=== PATIENT | female | born 1945 | race Two or more races ===

== ENCOUNTER 2018-11-05 16:23 | Inpatient (IN) | payer OTHER, MEDICAID ==
[~2018-11-05] VITALS: Ht 165.1 cm; Wt 136.1 kg
[2018-11-05] MEDS ORDERED: ALBUTEROL (0.083%) 2.5MG/3ML NEB HHN STA (17:10)
[2018-11-05] MEDS ORDERED: FUROSEMIDE 20MG/2ML VIAL IVP ONE (17:15)
[2018-11-05 18:13] LABS: BASOPHILS % 0.3 % (0.0-2.0); EOSINOPHILS % 1.2 % (0.0-5.0); HEMATOCRIT. 42.2 % (36.0-48.0); HEMOGLOBIN. 13.4 g/dL (12.0-16.0); LYMPHOCYTES % 9.8 % (20.0-50.0); MEAN CORPUSCULAR HEMOGLOBIN 27.8 pg (28.0-32.0); MEAN CORPUSCULAR VOLUME 87.4 fL (81.0-99.0); MEAN PLATELET VOLUME 9.2 fl (7.4-10.4); MONOCYTES % 7.7 % (2.0-8.0); PLATELET 238 x1000/uL (130-400); RED BLOOD CELL COUNT 4.83 mill/uL (4.2-5.4); RED CELL DISTRIBUTION WIDTH 15.5 % (11.6-14.6)
[2018-11-05 18:19] LABS: CHLORIDE 96 mEq/L (98-107)
[2018-11-05 18:25] LABS: PARTIAL THROMBOPLASTIN TIME 27.5 sec (23.4-31.0); PROTHROMBIN TIME 10.4 sec (9.1-11.1)
[2018-11-05] MEDS ORDERED: POTASSIUM CHLORIDE 20MEQ TABLET SR PO ONE (18:30)
[2018-11-05 19:34] LABS: *AMPHETAMINES SCREEN URINE NEGATIVE (NEGATIVE); *BARBITURATES SCREEN URINE NEGATIVE (NEGATIVE); *BENZODIAZEPINES SCREEN URINE NEGATIVE (NEGATIVE); *COCAINE SCREEN URINE NEGATIVE (NEGATIVE); METHADONE URINE SCREEN NEGATIVE (NEGATIVE); OPIATES URINE SCREEN NEGATIVE (NEGATIVE)
[2018-11-05 19:35] LABS: CANNABINOID URINE SCREEN NEGATIVE (NEGATIVE); PHENCYCLIDINE URINE SCREEN NEGATIVE (NEGATIVE)
[2018-11-05 23:40] VITALS: BP 96/57
[2018-11-06] MEDS ORDERED: ACETAMINOPHEN 325MG TABLET PO PRN (00:45)
[2018-11-06] MEDS ORDERED: IPRATROPIUM/ALBUTEROL 0.5-3(2.5)MG/3ML NEB HHN PRN (00:45)
[2018-11-06] MEDS ORDERED: NABU-88 MT (00:50)
[2018-11-06] MEDS ORDERED: LORA10TA7 MT (00:50)
[2018-11-06] MEDS ORDERED: ATOR40TA70 MT (00:50)
[2018-11-06] MEDS ORDERED: ATEN1TAB42 MT (00:50)
[2018-11-06 00:56] VITALS: BP 96/57
[2018-11-06] MEDS ORDERED: POTASSIUM CHLORIDE 20MEQ TABLET SR PO SCH (01:00)
[2018-11-06 01:20] LABS: CREATINE KINASE 156 IU/L (26-192)
[2018-11-06 01:21] LABS: CREATINE KINASE MB FRACTION 3.9 ng/mL (0.5-3.6)
[2018-11-06] MEDS ORDERED: LEVOFLOXACIN 500MG PREMIX 100 ML IV SCH ×2 (02:00)
[2018-11-06 04:00] VITALS: BP 117/50
[2018-11-06 07:31] LABS: BASOPHILS % 0.3 % (0.0-2.0); EOSINOPHILS % 1.4 % (0.0-5.0); HEMATOCRIT. 41.1 % (36.0-48.0); HEMOGLOBIN. 13.1 g/dL (12.0-16.0); LYMPHOCYTES % 11.6 % (20.0-50.0); MEAN CORPUSCULAR HEMOGLOBIN 28.1 pg (28.0-32.0); MEAN CORPUSCULAR VOLUME 88.2 fL (81.0-99.0); MEAN PLATELET VOLUME 8.9 fl (7.4-10.4); MONOCYTES % 7.8 % (2.0-8.0); NEUTROPHILS % 78.9 % (40.0-76.0); PLATELET 211 x1000/uL (130-400); RED BLOOD CELL COUNT 4.66 mill/uL (4.2-5.4); RED CELL DISTRIBUTION WIDTH 15.5 % (11.6-14.6)
[2018-11-06 07:32] LABS: CHLORIDE 96 mEq/L (98-107)
[2018-11-06 07:49] LABS: LDL CHOLESTEROL 76 mg/dL (5-100)
[2018-11-06 07:51] LABS: CREATINE KINASE 182 IU/L (26-192)
[2018-11-06 07:52] LABS: HDL CHOLESTEROL 43 mg/dL (40-59)
[2018-11-06 08:00] VITALS: BP 115/59
[2018-11-06] MEDS: IPRATROPIUM/ALBUTEROL 0.5-3(2.5)MG/3ML NEB HHN SCH ×4 (08:20→20:34)
[2018-11-06 12:00] VITALS: BP 117/59
[2018-11-06 12:21] LABS: BG BASE EXCESS 11.8 mmol/L (-2.0-2.0); BG CARBOXYHEMOGLOBIN 1.2 % (0.5-1.5); BG DEOXYHEMOGLOBIN 10.7 % (0.0-5.0); BG FRACTION INSPIRED OXYGEN 21; BG HCO3 ACT 39.5 mmol/L (22.0-26.0); BG METHEMOGLOBIN 0.4 % (0.0-1.5); BG OXYGEN SATURATION 89.1 % (92.0-98.5); BG OXYHEMOGLOBIN 87.7 % (94.0-97.0); BG PCO2 64.7 mmHg (35.0-45.0); BG PH 7.404 (7.350-7.450); BG PO2 56.1 mmHg (75.0-100.0); BG SAMPLE SITE RIGHT BRACHIAL; BG TOTAL HEMOGLOBIN 14.5 g/dL (12.0-18.0); BG VENT MODE ROOM AIR
[2018-11-06] MEDS ORDERED: DIPHENHYDRAMINE 50MG/ML VIAL IV PRN (14:30)
[2018-11-06] MEDS ORDERED: DOCUSATE SODIUM 100MG CAPSULE PO PRN (14:30)
[2018-11-06] MEDS ORDERED: ONDANSETRON HCL 4MG/2ML INJ IV PRN (14:30)
[2018-11-06] MEDS ORDERED: HYDROCODONE/ACETAMINOPHEN 5/325MG TABLET PO PRN (14:30)
[2018-11-06] MEDS ORDERED: HYDRALAZINE 20MG/ML VIAL IV PRN (14:30)
[2018-11-06 16:00] VITALS: BP 103/46
[2018-11-06 17:50] LABS: T4 FREE 1.35 ng/dL (0.76-1.46)
[2018-11-06] MEDS ORDERED: POTASSIUM CHLORIDE 20MEQ TABLET SR PO NR (18:30)
[2018-11-06] MEDS: LORATADINE 10MG TABLET PO SCH (19:00)
[2018-11-06] MEDS: METHYLPREDNISOLONE SOD SUCC 40 MG/ML VIAL IV SCH ×2 (19:00→21:47)
[2018-11-06 20:00] VITALS: BP 117/57
[2018-11-06] MEDS: BUDESONIDE 0.5MG/2ML NEB HHN SCH (20:33)
[2018-11-06] MEDS ORDERED: LEVOFLOXACIN 250MG PREMIX 50 ML IV SCH (21:00)
[2018-11-06] MEDS: MONTELUKAST SODIUM 10MG TABLET PO SCH (21:47)
[2018-11-06] MEDS: ATORVASTATIN CALCIUM 40MG TABLET PO SCH (21:47)
[2018-11-06] MEDS: ENOXAPARIN 40MG/0.4ML SYR SUBCUT SCH (21:47)
[2018-11-06] MEDS: FAMOTIDINE 20MG/2ML VIAL IV SCH (21:47)
[2018-11-06] MEDS: FUROSEMIDE 40MG/4ML VIAL IVP SCH (21:48)
[2018-11-06 22:44] LABS: CLARITY URINE CLEAR (CLEAR); COLOR URINE YELLOW (YELLOW); KETONES URINE NEGATIVE (NEGATIVE); LEUKOCYTE ESTERASE URINE NEGATIVE (NEGATIVE); NITRITE URINE NEGATIVE (NEGATIVE); OCCULT BLOOD URINE NEGATIVE (NEGATIVE); PH URINE 6.5 (4.5-8.0); PROTEIN URINE TRACE (NEGATIVE); SPECIFIC GRAVITY URINE 1.021 (1.005-1.030)
[2018-11-07] VITALS (9 sets, daily range): BP systolic 101–157; BP diastolic 44–62
[2018-11-07] MEDS: IPRATROPIUM/ALBUTEROL 0.5-3(2.5)MG/3ML NEB HHN SCH ×6 (00:19→20:57)
[2018-11-07] MEDS: METHYLPREDNISOLONE SOD SUCC 40 MG/ML VIAL IV SCH ×3 (05:33→21:06)
[2018-11-07] MEDS: LEVOFLOXACIN 500MG PREMIX 100 ML IV SCH (05:38)
[2018-11-07 06:29] LABS: HEMATOCRIT 41.9 % (36.0-48.0); HEMOGLOBIN 13.3 g/dL (12.0-16.0); MEAN CORPUSCULAR HEMOGLOBIN 28.2 pg (28.0-32.0); MEAN CORPUSCULAR VOLUME 88.6 fL (81.0-99.0); PLATELET 207 x1000/uL (130-400); RED BLOOD CELL COUNT 4.72 mill/uL (4.2-5.4); RED CELL DISTRIBUTION WIDTH 15.7 % (11.6-14.6)
[2018-11-07 07:55] LABS: CHLORIDE 97 mEq/L (98-107)
[2018-11-07] MEDS: BUDESONIDE 0.5MG/2ML NEB HHN SCH ×2 (09:45→20:50)
[2018-11-07] MEDS: FAMOTIDINE 20MG/2ML VIAL IV SCH ×2 (09:50→20:48)
[2018-11-07] MEDS: LORATADINE 10MG TABLET PO SCH (09:50)
[2018-11-07] MEDS: POTASSIUM CHLORIDE 20MEQ TABLET SR PO SCH (09:50)
[2018-11-07] MEDS: FUROSEMIDE 40MG/4ML VIAL IVP SCH ×2 (09:50→20:48)
[2018-11-07] MEDS: ENOXAPARIN 40MG/0.4ML SYR SUBCUT SCH ×2 (10:28→20:48)
[2018-11-07 18:05] LABS: CREATINE KINASE MB FRACTION 3.4 ng/mL (0.5-3.6)
[2018-11-07] MEDS: ATORVASTATIN CALCIUM 40MG TABLET PO SCH (20:47)
[2018-11-07] MEDS: MONTELUKAST SODIUM 10MG TABLET PO SCH (20:47)
[2018-11-07] MEDS: AMLODIPINE 2.5MG TABLET PO SCH (20:48)
[2018-11-08] VITALS: BP 113/59
[2018-11-08] MEDS: IPRATROPIUM/ALBUTEROL 0.5-3(2.5)MG/3ML NEB HHN SCH ×6 (00:01→21:01)
[2018-11-08 04:00] VITALS: BP 100/48
[2018-11-08] MEDS: METHYLPREDNISOLONE SOD SUCC 40 MG/ML VIAL IV SCH ×3 (05:16→22:03)
[2018-11-08] MEDS: LEVOFLOXACIN 500MG PREMIX 100 ML IV SCH (05:16)
[2018-11-08 06:13] LABS: HEMATOCRIT 40.2 % (36.0-48.0); HEMOGLOBIN 12.9 g/dL (12.0-16.0); MEAN CORPUSCULAR HEMOGLOBIN 28.1 pg (28.0-32.0); MEAN CORPUSCULAR VOLUME 87.9 fL (81.0-99.0); PLATELET 197 x1000/uL (130-400); RED BLOOD CELL COUNT 4.58 mill/uL (4.2-5.4); RED CELL DISTRIBUTION WIDTH 15.4 % (11.6-14.6)
[2018-11-08 06:33] LABS: CHLORIDE 93 mEq/L (98-107)
[2018-11-08 08:00] VITALS: BP 130/63
[2018-11-08] MEDS: BUDESONIDE 0.5MG/2ML NEB HHN SCH ×2 (09:16→21:02)
[2018-11-08] MEDS: FUROSEMIDE 40MG/4ML VIAL IVP SCH ×2 (09:47→20:57)
[2018-11-08] MEDS: LORATADINE 10MG TABLET PO SCH (09:47)
[2018-11-08] MEDS: FAMOTIDINE 20MG/2ML VIAL IV SCH ×2 (09:47→20:55)
[2018-11-08] MEDS: ENOXAPARIN 40MG/0.4ML SYR SUBCUT SCH ×2 (09:48→20:59)
[2018-11-08] MEDS: AMLODIPINE 2.5MG TABLET PO SCH ×2 (09:48→20:55)
[2018-11-08] MEDS: POTASSIUM CHLORIDE 20MEQ TABLET SR PO SCH (09:52)
[2018-11-08 12:00] VITALS: BP 114/67
[2018-11-08 16:00] VITALS: BP 127/62
[2018-11-08 20:00] VITALS: BP 126/62
[2018-11-08] MEDS: ATORVASTATIN CALCIUM 40MG TABLET PO SCH (20:54)
[2018-11-08] MEDS: MONTELUKAST SODIUM 10MG TABLET PO SCH (22:03)
[2018-11-09] VITALS: BP 111/51
[2018-11-09 04:00] VITALS: BP 134/45
[2018-11-09] MEDS: IPRATROPIUM/ALBUTEROL 0.5-3(2.5)MG/3ML NEB HHN SCH ×6 (04:49→21:18)
[2018-11-09] MEDS: LEVOFLOXACIN 500MG PREMIX 100 ML IV SCH (05:38)
[2018-11-09] MEDS: METHYLPREDNISOLONE SOD SUCC 40 MG/ML VIAL IV SCH ×2 (05:38→13:44)
[2018-11-09] MEDS: BUDESONIDE 0.5MG/2ML NEB HHN SCH (07:50)
[2018-11-09 08:00] VITALS: BP 119/65
[2018-11-09] MEDS: FAMOTIDINE 20MG/2ML VIAL IV SCH ×2 (09:04→20:35)
[2018-11-09] MEDS: FUROSEMIDE 40MG/4ML VIAL IVP SCH ×2 (09:04→20:35)
[2018-11-09] MEDS: ENOXAPARIN 40MG/0.4ML SYR SUBCUT SCH ×2 (09:04→20:35)
[2018-11-09] MEDS: POTASSIUM CHLORIDE 20MEQ TABLET SR PO SCH (09:05)
[2018-11-09] MEDS: AMLODIPINE 2.5MG TABLET PO SCH ×2 (09:05→20:34)
[2018-11-09] MEDS: LORATADINE 10MG TABLET PO SCH (09:05)
[2018-11-09 11:39] LABS: BG BASE EXCESS 18.6 mmol/L (-2.0-2.0); BG DEOXYHEMOGLOBIN 2.6 % (0.0-5.0); BG FRACTION INSPIRED OXYGEN 32; BG HCO3 ACT 47.3 mmol/L (22.0-26.0); BG METHEMOGLOBIN 0.2 % (0.0-1.5); BG OXYGEN SATURATION 97.4 % (92.0-98.5); BG OXYHEMOGLOBIN 96.2 % (94.0-97.0); BG PCO2 71.6 mmHg (35.0-45.0); BG PH 7.438 (7.350-7.450); BG PO2 96.9 mmHg (75.0-100.0); BG SAMPLE SITE RIGHT RADIAL; BG TOTAL HEMOGLOBIN 15.2 g/dL (12.0-18.0); BG VENT MODE NASAL CANNULA
[2018-11-09 12:33] VITALS: BP 136/66
[2018-11-09 16:00] VITALS: BP 121/55
[2018-11-09 20:00] VITALS: BP 112/47
[2018-11-09] MEDS: MONTELUKAST SODIUM 10MG TABLET PO SCH (20:34)
[2018-11-09] MEDS: ATORVASTATIN CALCIUM 40MG TABLET PO SCH (20:34)
[2018-11-10] VITALS (7 sets, daily range): BP systolic 105–124; BP diastolic 49–70
[2018-11-10] MEDS: IPRATROPIUM/ALBUTEROL 0.5-3(2.5)MG/3ML NEB HHN SCH ×6 (00:44→20:09)
[2018-11-10] MEDS: METHYLPREDNISOLONE SOD SUCC 40 MG/ML VIAL IV SCH ×2 (03:28→15:15)
[2018-11-10] MEDS: LEVOFLOXACIN 500MG PREMIX 100 ML IV SCH (05:26)
[2018-11-10 07:17] LABS: BG BASE EXCESS 17.1 mmol/L (-2.0-2.0); BG CARBOXYHEMOGLOBIN 1.3 % (0.5-1.5); BG DEOXYHEMOGLOBIN 6.2 % (0.0-5.0); BG HCO3 ACT 47.2 mmol/L (22.0-26.0); BG METHEMOGLOBIN 0.3 % (0.0-1.5); BG OXYGEN SATURATION 93.7 % (92.0-98.5); BG OXYHEMOGLOBIN 92.2 % (94.0-97.0); BG PCO2 80.1 mmHg (35.0-45.0); BG PH 7.388 (7.350-7.450); BG PO2 71.6 mmHg (75.0-100.0); BG SAMPLE SITE RIGHT RADIAL; BG TOTAL HEMOGLOBIN 15.9 g/dL (12.0-18.0); BG VENT MODE NASAL CANNULA
[2018-11-10 07:36] LABS: HEMATOCRIT 44.7 % (36.0-48.0); HEMOGLOBIN 14.1 g/dL (12.0-16.0); MEAN CORPUSCULAR HEMOGLOBIN 27.9 pg (28.0-32.0); MEAN CORPUSCULAR VOLUME 88.5 fL (81.0-99.0); PLATELET 190 x1000/uL (130-400); RED BLOOD CELL COUNT 5.05 mill/uL (4.2-5.4); RED CELL DISTRIBUTION WIDTH 15.6 % (11.6-14.6)
[2018-11-10] MEDS: LORATADINE 10MG TABLET PO SCH (09:59)
[2018-11-10] MEDS: POTASSIUM CHLORIDE 20MEQ TABLET SR PO SCH (09:59)
[2018-11-10] MEDS: FUROSEMIDE 40MG/4ML VIAL IVP SCH (09:59)
[2018-11-10] MEDS: AMLODIPINE 2.5MG TABLET PO SCH ×2 (09:59→21:00)
[2018-11-10] MEDS: FAMOTIDINE 20MG/2ML VIAL IV SCH ×2 (09:59→21:21)
[2018-11-10] MEDS: ENOXAPARIN 40MG/0.4ML SYR SUBCUT SCH ×2 (10:00→21:21)
[2018-11-10] MEDS ORDERED: LIDOCAINE HCL/PF 1% 2ML VIAL ONE (13:16)
[2018-11-10 17:54] LABS: BG BASE EXCESS 18.4 mmol/L (-2.0-2.0); BG CARBOXYHEMOGLOBIN 1.1 % (0.5-1.5); BG DEOXYHEMOGLOBIN 5.8 % (0.0-5.0); BG HCO3 ACT 46.3 mmol/L (22.0-26.0); BG METHEMOGLOBIN 0.2 % (0.0-1.5); BG OXYGEN SATURATION 94.1 % (92.0-98.5); BG OXYHEMOGLOBIN 92.9 % (94.0-97.0); BG PCO2 64.9 mmHg (35.0-45.0); BG PH 7.471 (7.350-7.450); BG PO2 67.4 mmHg (75.0-100.0); BG SAMPLE SITE RIGHT BRACHIAL; BG TOTAL HEMOGLOBIN 15.8 g/dL (12.0-18.0); BG VENT MODE NASAL CANNULA
[2018-11-10] MEDS: ATORVASTATIN CALCIUM 40MG TABLET PO SCH (21:21)
[2018-11-10] MEDS: MONTELUKAST SODIUM 10MG TABLET PO SCH (21:21)
[2018-11-11] MEDS ORDERED: FUROSEMIDE 40MG TABLET PO SCH (09:00)
== END 2018-11-10 21:40 | disposition home or self-care (01) | DRG 189 ==
LOC: ER 16:23 → 5WST 18:37 → EDBEDREQ 18:51 → ENRESERV 22:04
PROVIDERS: ADMIT Internal Medicine; ATTEND Internal Medicine
PROC: 5A09357 Assistance with Respiratory Ventilation, Less than 24 Consecutive Hours, Continuous Positive Airway Pressure (ICD-10-PCS; principal; 2018-11-06)
PROC: 5A09357 Assistance with Respiratory Ventilation, Less than 24 Consecutive Hours, Continuous Positive Airway Pressure (ICD-10-PCS; 2018-11-07)
PROC: 5A09357 Assistance with Respiratory Ventilation, Less than 24 Consecutive Hours, Continuous Positive Airway Pressure (ICD-10-PCS; 2018-11-08)
PROC: 5A09357 Assistance with Respiratory Ventilation, Less than 24 Consecutive Hours, Continuous Positive Airway Pressure (ICD-10-PCS; 2018-11-09)
PROC: 5A09357 Assistance with Respiratory Ventilation, Less than 24 Consecutive Hours, Continuous Positive Airway Pressure (ICD-10-PCS; 2018-11-10)
DX: J96.01 Acute respiratory failure with hypoxia (principal); I50.33 Acute on chronic diastolic (congestive) heart failure; J44.1 Chronic obstructive pulmonary disease with (acute) exacerbation; D68.59 Other primary thrombophilia; E66.2 Morbid (severe) obesity with alveolar hypoventilation; Z68.42 Body mass index [BMI] 45.0-49.9, adult; J96.02 Acute respiratory failure with hypercapnia; D72.829 Elevated white blood cell count, unspecified; E87.6 Hypokalemia; E78.5 Hyperlipidemia, unspecified; R73.9 Hyperglycemia, unspecified; I27.20 Pulmonary hypertension, unspecified; I73.9 Peripheral vascular disease, unspecified; Z87.891 Personal history of nicotine dependence; Z88.0 Allergy status to penicillin; Z88.6 Allergy status to analgesic agent; Z88.1 Allergy status to other antibiotic agents; I11.0 Hypertensive heart disease with heart failure
CPT/HCPCS: 36415; 36600; 71045; 71250; 80048; 80061; 80305; 82375; 82550; 82553; 82805; 83036; 83880; 84439; 84443; 84484; 85027; 85379; 87804; 93005; 93306; 93923; 93970; 94640; 94660; 94760; 96374; 97162; 97535; 99285; C1893; J1650; J1940; J1956; J2920; J3490; J7040; J7611; J7620; J7626

== ENCOUNTER 2020-05-10 17:13 | Inpatient (IN) | payer OTHER, MEDICAID ==
[~2020-05-10] VITALS: Ht 162.6 cm; Wt 125.2 kg
[~2020-05-10 17:13] MED LIST: AMLO5TAB4 MT; ATOR40TA70 MT; FAMO-135 PO; FLUT1AER INH; FURO-151 MT; IPRA3AMP9 HHN; LEVO500T2 PO; LORA10TA7 MT; P20 MT
[2020-05-10] MEDS ORDERED: FUROSEMIDE 40MG/4ML VIAL IV ONE (18:15)
[2020-05-10] MEDS ORDERED: LEVOFLOXACIN 750MG PREMIX 150 ML IV ONE (18:15)
[2020-05-10] MEDS ORDERED: VANCOMYCIN 1 G PREMIX 200 ML IV ONE (18:15)
[2020-05-10] MEDS ORDERED: NITROGLYCERIN OINT 1GM/INCH UDPKT TD ONE (18:15)
[2020-05-10] MEDS ORDERED: MORPHINE SULFATE 4 MG/ML CPJ (NOT FOR IM USE) IV STA (18:51)
[2020-05-10] MEDS ORDERED: ONDANSETRON HCL 4MG/2ML INJ IV STA (18:51)
[2020-05-10 19:12] LABS: HEMATOCRIT. 35.9 % (36.0-48.0); HEMOGLOBIN. 11.2 g/dL (12.0-16.0); MEAN CORPUSCULAR HEMOGLOBIN 27.4 pg (28.0-32.0); MEAN CORPUSCULAR VOLUME 87.7 fL (81.0-99.0); MEAN PLATELET VOLUME 10.2 fl (7.4-10.4); PLATELET 241 x1000/uL (130-400); RED CELL DISTRIBUTION WIDTH 16.2 % (11.6-14.6)
[2020-05-10 19:20] LABS: CHLORIDE 97 mEq/L (98-107)
[2020-05-10 19:35] LABS: INR 1.1; PARTIAL THROMBOPLASTIN TIME 30.8 sec (23.4-31.0); PROTHROMBIN TIME 11.4 sec (9.6-11.0)
[2020-05-10 20:07] LABS: PLATELET ESTIMATE NORMAL
[2020-05-10] MEDS ORDERED: PROPOFOL 10MG/ML 100ML 100 ML IV ONE ×2 (20:32→21:00)
[2020-05-10] MEDS ORDERED: LORAZEPAM 2MG/ML CPJ ONE (20:44)
[2020-05-10] MEDS ORDERED: LORAZEPAM 2MG/ML CPJ IV ONE (21:00)
[2020-05-10] MEDS ORDERED: NOREPINEPHRINE 8 MG in DEXT 5% WATER 242 ML IV STA (21:26)
[2020-05-10 21:27] LABS: BG BASE EXCESS 4.3 mmol/L (-2.0-2.0); BG CARBOXYHEMOGLOBIN 1.6 % (0.5-1.5); BG DEOXYHEMOGLOBIN 1.7 % (0.0-5.0); BG FRACTION INSPIRED OXYGEN 100; BG HCO3 ACT 33.1 mmol/L (22.0-26.0); BG METHEMOGLOBIN 0.1 % (0.0-1.5); BG OXYGEN SATURATION 98.3 % (92.0-98.5); BG OXYHEMOGLOBIN 96.6 % (94.0-97.0); BG PCO2 73.4 mmHg (35.0-45.0); BG PH 7.272 (7.350-7.450); BG PO2 171.1 mmHg (75.0-100.0); BG SAMPLE SITE RIGHT RADIAL; BG TIDAL VOLUME(mL) 550 mL; BG TOTAL HEMOGLOBIN 11.8 g/dL (12.0-18.0); BG VENT MODE VENT - A/C; BG VENT RATE 16 set
[2020-05-10] MEDS ORDERED: NOREPINEPHRINE 8MG/250ML PMX 250 ML IV PRN (21:30)
[2020-05-11] VITALS (20 sets, daily range): BP systolic 78–151; BP diastolic 39–69
[2020-05-11] MEDS ORDERED: PROPOFOL 10MG/ML 100ML 100 ML IV SCH (01:30)
[2020-05-11] MEDS ORDERED: NOREPINEPHRINE 8MG/250ML PMX 250 ML IV ONE ×3 (03:00→17:30)
[2020-05-11] MEDS ORDERED: LEVOFLOXACIN 500MG PREMIX 100 ML IV SCH (12:45)
[2020-05-11] MEDS ORDERED: ONDANSETRON HCL 4MG/2ML INJ IV PRN (12:45)
[2020-05-11] MEDS: PANTOPRAZOLE SODIUM 40 MG/VIAL IV SCH (13:39)
[2020-05-11] MEDS ORDERED: LORAZEPAM 2MG/ML CPJ IV PRN (16:30)
[2020-05-11 16:47] LABS: CLARITY URINE CLOUDY (CLEAR); COLOR URINE YELLOW (YELLOW); KETONES URINE 1+ (NEGATIVE); LEUKOCYTE ESTERASE URINE TRACE (NEGATIVE); NITRITE URINE NEGATIVE (NEGATIVE); OCCULT BLOOD URINE 1+ (NEGATIVE); PROTEIN URINE TRACE (NEGATIVE); SPECIFIC GRAVITY URINE 1.016 (1.005-1.030)
[2020-05-11] MEDS: ACETAMINOPHEN 325MG TABLET PO PRN (17:39)
[2020-05-11] MEDS: FUROSEMIDE 40MG/4ML VIAL IV SCH (17:45)
[2020-05-11] MEDS: PROPOFOL 10MG/ML 100ML 100 ML IV PRN ×2 (19:16→22:14)
[2020-05-11] MEDS ORDERED: NOREPINEPHRINE 32 MG in DEXT 5% WATER 218 ML IV PRN (19:30)
[2020-05-11] MEDS: LEVOFLOXACIN 250MG PREMIX 50 ML IV SCH (20:06)
[2020-05-11] MEDS: IPRATROPIUM/ALBUTEROL 0.5-3(2.5)MG/3ML NEB HHN SCH (20:59)
[2020-05-12] VITALS (96 sets, daily range): BP systolic 86–139; BP diastolic 36–96
[2020-05-12] MEDS: IPRATROPIUM/ALBUTEROL 0.5-3(2.5)MG/3ML NEB HHN SCH ×5 (00:18→21:45)
[2020-05-12] MEDS: PROPOFOL 10MG/ML 100ML 100 ML IV PRN ×6 (01:36→17:38)
[2020-05-12] MEDS: FUROSEMIDE 40MG/4ML VIAL IV SCH ×2 (06:22→17:39)
[2020-05-12 06:27] LABS: HEMATOCRIT. 30.7 % (36.0-48.0); HEMOGLOBIN. 9.7 g/dL (12.0-16.0); MEAN CORPUSCULAR HEMOGLOBIN 27.3 pg (28.0-32.0); MEAN CORPUSCULAR VOLUME 86.2 fL (81.0-99.0); MEAN PLATELET VOLUME 9.9 fl (7.4-10.4); PLATELET 203 x1000/uL (130-400); RED BLOOD CELL COUNT 3.56 mill/uL (4.2-5.4); RED CELL DISTRIBUTION WIDTH 16.2 % (11.6-14.6)
[2020-05-12] MEDS: PANTOPRAZOLE SODIUM 40 MG/VIAL IV SCH (08:28)
[2020-05-12] MEDS: ACETAMINOPHEN 325MG TABLET PO PRN (08:36)
[2020-05-12 09:27] LABS: BG BASE EXCESS 10.3 mmol/L (-2.0-2.0); BG CARBOXYHEMOGLOBIN 0.8 % (0.5-1.5); BG DEOXYHEMOGLOBIN 7.5 % (0.0-5.0); BG FRACTION INSPIRED OXYGEN 70; BG HCO3 ACT 34.2 mmol/L (22.0-26.0); BG METHEMOGLOBIN 0.3 % (0.0-1.5); BG OXYGEN SATURATION 92.4 % (92.0-98.5); BG OXYHEMOGLOBIN 91.4 % (94.0-97.0); BG PCO2 43.1 mmHg (35.0-45.0); BG PH 7.518 (7.350-7.450); BG PO2 63.7 mmHg (75.0-100.0); BG SAMPLE SITE RIGHT RADIAL; BG TIDAL VOLUME(mL) 550 mL; BG TOTAL HEMOGLOBIN 10.8 g/dL (12.0-18.0); BG VENT MODE VENT - A/C; BG VENT RATE 20 set
[2020-05-12 09:52] LABS: CHLORIDE 101 mEq/L (98-107)
[2020-05-12 09:59] LABS: PHOSPHORUS 3.1 mg/dL (2.5-4.9)
[2020-05-12] MEDS ORDERED: ENOXAPARIN 40MG/0.4ML SYR SUBCUT SCH (11:00)
[2020-05-12] MEDS: TRAMADOL 50MG TABLET PO PRN ×2 (12:29→23:47)
[2020-05-12] MEDS: POTASSIUM CHLORIDE 20MEQ TABLET SR PO SCH (12:31)
[2020-05-12 12:41] LABS: PLATELET ESTIMATE NORMAL
[2020-05-12] MEDS: LEVOFLOXACIN 250MG PREMIX 50 ML IV SCH (17:33)
[2020-05-12] MEDS: PROPOFOL 10MG/ML 100ML 100 ML IV SCH ×2 (20:11→22:40)
[2020-05-12] MEDS: ENOXAPARIN 30MG/0.3ML SYR SUBCUT SCH (21:26)
[2020-05-13] VITALS (96 sets, daily range): BP systolic 80–130; BP diastolic 24–73
[2020-05-13] MEDS ORDERED: VANCOMYCIN 750 MG PREMIX 150 ML IV SCH
[2020-05-13] MEDS: PROPOFOL 10MG/ML 100ML 100 ML IV SCH ×6 (01:41→18:29)
[2020-05-13] MEDS: MEROPENEM 500 MG in SODIUM CHLORIDE 0.9% 50 ML IV SCH ×3 (02:07→17:41)
[2020-05-13] MEDS: IPRATROPIUM/ALBUTEROL 0.5-3(2.5)MG/3ML NEB HHN SCH ×4 (03:34→19:58)
[2020-05-13 06:13] LABS: HEMATOCRIT. 28.6 % (36.0-48.0); HEMOGLOBIN. 9.1 g/dL (12.0-16.0); MEAN CORPUSCULAR HEMOGLOBIN 27.6 pg (28.0-32.0); MEAN CORPUSCULAR VOLUME 86.6 fL (81.0-99.0); MEAN PLATELET VOLUME 9.9 fl (7.4-10.4); PLATELET 182 x1000/uL (130-400); RED CELL DISTRIBUTION WIDTH 15.9 % (11.6-14.6)
[2020-05-13] MEDS: FUROSEMIDE 40MG/4ML VIAL IV SCH ×2 (06:25→17:44)
[2020-05-13] MEDS: TRAMADOL 50MG TABLET PO PRN (08:53)
[2020-05-13] MEDS: POTASSIUM CHLORIDE 20MEQ TABLET SR PO SCH (08:53)
[2020-05-13] MEDS: PANTOPRAZOLE SODIUM 40 MG/VIAL IV SCH (08:53)
[2020-05-13] MEDS: ENOXAPARIN 30MG/0.3ML SYR SUBCUT SCH ×2 (08:55→20:33)
[2020-05-13 10:23] LABS: PLATELET ESTIMATE NORMAL
[2020-05-13 12:11] LABS: BG BASE EXCESS 10.5 mmol/L (-2.0-2.0); BG CARBOXYHEMOGLOBIN 0.6 % (0.5-1.5); BG DEOXYHEMOGLOBIN 5.3 % (0.0-5.0); BG FRACTION INSPIRED OXYGEN 70; BG HCO3 ACT 35.2 mmol/L (22.0-26.0); BG METHEMOGLOBIN 0.3 % (0.0-1.5); BG OXYGEN SATURATION 94.7 % (92.0-98.5); BG OXYHEMOGLOBIN 93.8 % (94.0-97.0); BG PCO2 48.5 mmHg (35.0-45.0); BG PH 7.479 (7.350-7.450); BG PO2 80.5 mmHg (75.0-100.0); BG SAMPLE SITE RIGHT RADIAL; BG TIDAL VOLUME(mL) 550 mL; BG TOTAL HEMOGLOBIN 9.5 g/dL (12.0-18.0); BG VENT MODE VENT - A/C; BG VENT RATE 20 set
[2020-05-13] MEDS ORDERED: POTASSIUM CHLORIDE INJ 40 MEQ in DEXT 5% WATER 250 ML IV SCH (13:00)
[2020-05-13] MEDS ORDERED: DIPHENHYDRAMINE 50MG/ML VIAL IV PRN (14:15)
[2020-05-13] MEDS ORDERED: MORPHINE SULFATE 2 MG/ML CPJ (NOT FOR IM USE) IV PRN (14:15)
[2020-05-13] MEDS ORDERED: ALBUMIN HUMAN 25GM/100ML (25%) IV NR (14:30)
[2020-05-13] MEDS: METHYLPREDNISOLONE SOD SUCC 40 MG/ML VIAL IV SCH ×2 (14:42→20:33)
[2020-05-13] MEDS: VANCOMYCIN 1500MG in DEXTROSE 5% WATER 250ML IV SCH (18:29)
[2020-05-13] MEDS: PROPOFOL 10MG/ML 100ML 100 ML IV PRN ×2 (20:14→22:59)
[2020-05-13] MEDS ORDERED: LACTULOSE 20G/30ML UDC PO PRN (21:00)
[2020-05-14] VITALS (94 sets, daily range): BP systolic 91–120; BP diastolic 40–65
[2020-05-14] MEDS: MEROPENEM 500 MG in SODIUM CHLORIDE 0.9% 50 ML IV SCH ×3 (01:14→18:26)
[2020-05-14] MEDS: PROPOFOL 10MG/ML 100ML 100 ML IV PRN ×10 (01:15→23:44)
[2020-05-14] MEDS: IPRATROPIUM/ALBUTEROL 0.5-3(2.5)MG/3ML NEB HHN SCH ×3 (02:11→12:14)
[2020-05-14 06:11] LABS: HEMATOCRIT. 27.2 % (36.0-48.0); MEAN CORPUSCULAR HEMOGLOBIN 28.6 pg (28.0-32.0); MEAN CORPUSCULAR VOLUME 86.3 fL (81.0-99.0); MEAN PLATELET VOLUME 9.9 fl (7.4-10.4); PLATELET 173 x1000/uL (130-400); RED BLOOD CELL COUNT 3.15 mill/uL (4.2-5.4); RED CELL DISTRIBUTION WIDTH 15.8 % (11.6-14.6)
[2020-05-14 06:31] LABS: T4 FREE 1.69 ng/dL (0.76-1.46)
[2020-05-14] MEDS: FUROSEMIDE 40MG/4ML VIAL IV SCH ×2 (08:16→18:26)
[2020-05-14] MEDS: METHYLPREDNISOLONE SOD SUCC 40 MG/ML VIAL IV SCH ×2 (08:38→21:27)
[2020-05-14] MEDS: PANTOPRAZOLE SODIUM 40 MG/VIAL IV SCH (08:38)
[2020-05-14] MEDS: ENOXAPARIN 30MG/0.3ML SYR SUBCUT SCH ×2 (08:38→21:27)
[2020-05-14] MEDS: POTASSIUM CHLORIDE 20MEQ TABLET SR PO SCH (08:38)
[2020-05-14 08:53] LABS: BG CARBOXYHEMOGLOBIN 0.6 % (0.5-1.5); BG DEOXYHEMOGLOBIN 7.3 % (0.0-5.0); BG FRACTION INSPIRED OXYGEN 70; BG HCO3 ACT 34.2 mmol/L (22.0-26.0); BG METHEMOGLOBIN 0.3 % (0.0-1.5); BG OXYGEN SATURATION 92.6 % (92.0-98.5); BG OXYHEMOGLOBIN 91.8 % (94.0-97.0); BG PCO2 44.9 mmHg (35.0-45.0); BG PO2 67.1 mmHg (75.0-100.0); BG SAMPLE SITE RIGHT RADIAL; BG TIDAL VOLUME(mL) 550 mL; BG TOTAL HEMOGLOBIN 9.2 g/dL (12.0-18.0); BG VENT MODE VENT - A/C; BG VENT RATE 20 set
[2020-05-14 09:15] LABS: PLATELET ESTIMATE NORMAL
[2020-05-14] MEDS ORDERED: POTASSIUM CHLORIDE 20MEQ TABLET SR PO NR (17:00)
[2020-05-14] MEDS: VANCOMYCIN 1500MG in DEXTROSE 5% WATER 250ML IV SCH (18:27)
[2020-05-14] MEDS ORDERED: FUROSEMIDE 40MG/4ML VIAL IVP NR (21:00)
[2020-05-15] VITALS (97 sets, daily range): BP systolic 94–151; BP diastolic 36–97
[2020-05-15] MEDS: IPRATROPIUM/ALBUTEROL 0.5-3(2.5)MG/3ML NEB HHN SCH ×4 (01:45→21:13)
[2020-05-15] MEDS: PROPOFOL 10MG/ML 100ML 100 ML IV PRN ×5 (01:53→20:04)
[2020-05-15] MEDS: MEROPENEM 500 MG in SODIUM CHLORIDE 0.9% 50 ML IV SCH ×3 (01:53→17:35)
[2020-05-15 06:48] LABS: HEMATOCRIT. 28.5 % (36.0-48.0); MEAN CORPUSCULAR HEMOGLOBIN 27.6 pg (28.0-32.0); MEAN CORPUSCULAR VOLUME 86.9 fL (81.0-99.0); MEAN PLATELET VOLUME 10.2 fl (7.4-10.4); PLATELET 215 x1000/uL (130-400); RED BLOOD CELL COUNT 3.27 mill/uL (4.2-5.4); RED CELL DISTRIBUTION WIDTH 15.7 % (11.6-14.6)
[2020-05-15 07:53] LABS: PLATELET ESTIMATE NORMAL
[2020-05-15] MEDS: FUROSEMIDE 40MG/4ML VIAL IV SCH ×2 (07:57→17:09)
[2020-05-15] MEDS: ENOXAPARIN 30MG/0.3ML SYR SUBCUT SCH ×2 (08:21→21:17)
[2020-05-15] MEDS: METHYLPREDNISOLONE SOD SUCC 40 MG/ML VIAL IV SCH ×2 (08:21→21:16)
[2020-05-15] MEDS: PANTOPRAZOLE SODIUM 40 MG/VIAL IV SCH (08:22)
[2020-05-15] MEDS: POTASSIUM CHLORIDE 20MEQ TABLET SR PO SCH (08:22)
[2020-05-15 08:40] LABS: BG BASE EXCESS 8.3 mmol/L (-2.0-2.0); BG CARBOXYHEMOGLOBIN 0.7 % (0.5-1.5); BG DEOXYHEMOGLOBIN 3.4 % (0.0-5.0); BG FRACTION INSPIRED OXYGEN 70; BG METHEMOGLOBIN 0.3 % (0.0-1.5); BG OXYGEN SATURATION 96.6 % (92.0-98.5); BG OXYHEMOGLOBIN 95.6 % (94.0-97.0); BG PCO2 53.2 mmHg (35.0-45.0); BG PH 7.423 (7.350-7.450); BG PO2 95.6 mmHg (75.0-100.0); BG SAMPLE SITE RIGHT RADIAL; BG TIDAL VOLUME(mL) 500 mL; BG TOTAL HEMOGLOBIN 9.8 g/dL (12.0-18.0); BG VENT MODE VENT - A/C; BG VENT RATE 18 set
[2020-05-15] MEDS ORDERED: LIDOCAINE HCL 1% 20ML VIAL (Pyxis) INJ ONE (09:33)
[2020-05-15] MEDS: LORAZEPAM 2MG/ML CPJ IV PRN ×3 (10:04→21:46)
[2020-05-15] MEDS ORDERED: VANCOMYCIN 1500MG in DEXTROSE 5% WATER 250ML IV SCH (12:00)
[2020-05-15 13:46] LABS: BG CARBOXYHEMOGLOBIN 0.9 % (0.5-1.5); BG DEOXYHEMOGLOBIN 10.8 % (0.0-5.0); BG FRACTION INSPIRED OXYGEN 50; BG HCO3 ACT 36.2 mmol/L (22.0-26.0); BG METHEMOGLOBIN 0.3 % (0.0-1.5); BG OXYGEN SATURATION 89.1 % (92.0-98.5); BG PCO2 71.8 mmHg (35.0-45.0); BG PO2 67.7 mmHg (75.0-100.0); BG PRESSURE SUPPORT 10; BG SAMPLE SITE RIGHT RADIAL; BG TOTAL HEMOGLOBIN 11.3 g/dL (12.0-18.0); BG VENT MODE VENT - CPAP
[2020-05-15] MEDS ORDERED: CEFTRIAXONE 1 G PREMIX 50 ML IV SCH (17:15)
[2020-05-16] VITALS (90 sets, daily range): BP systolic 102–141; BP diastolic 42–78
[2020-05-16] MEDS: MEROPENEM 500 MG in SODIUM CHLORIDE 0.9% 50 ML IV SCH ×3 (01:22→17:47)
[2020-05-16] MEDS: IPRATROPIUM/ALBUTEROL 0.5-3(2.5)MG/3ML NEB HHN SCH ×3 (02:15→20:28)
[2020-05-16] MEDS: PROPOFOL 10MG/ML 100ML 100 ML IV PRN ×3 (02:32→16:06)
[2020-05-16 05:46] LABS: HEMATOCRIT. 29.9 % (36.0-48.0); HEMOGLOBIN. 9.7 g/dL (12.0-16.0); MEAN CORPUSCULAR HEMOGLOBIN 28.3 pg (28.0-32.0); MEAN CORPUSCULAR VOLUME 87.3 fL (81.0-99.0); MEAN PLATELET VOLUME 10.1 fl (7.4-10.4); PLATELET 228 x1000/uL (130-400); RED BLOOD CELL COUNT 3.43 mill/uL (4.2-5.4); RED CELL DISTRIBUTION WIDTH 15.9 % (11.6-14.6)
[2020-05-16] MEDS: FUROSEMIDE 40MG/4ML VIAL IV SCH ×2 (06:18→17:47)
[2020-05-16 07:59] LABS: PLATELET ESTIMATE NORMAL
[2020-05-16] MEDS: POTASSIUM CHLORIDE 20MEQ TABLET SR PO SCH (08:24)
[2020-05-16] MEDS: PANTOPRAZOLE SODIUM 40 MG/VIAL IV SCH (08:24)
[2020-05-16] MEDS: METHYLPREDNISOLONE SOD SUCC 40 MG/ML VIAL IV SCH ×2 (08:24→21:00)
[2020-05-16] MEDS: ENOXAPARIN 30MG/0.3ML SYR SUBCUT SCH (08:24)
[2020-05-16 09:26] LABS: BG BASE EXCESS 10.9 mmol/L (-2.0-2.0); BG CARBOXYHEMOGLOBIN 0.6 % (0.5-1.5); BG DEOXYHEMOGLOBIN 3.4 % (0.0-5.0); BG FRACTION INSPIRED OXYGEN 50; BG HCO3 ACT 36.7 mmol/L (22.0-26.0); BG METHEMOGLOBIN 0.3 % (0.0-1.5); BG OXYGEN SATURATION 96.6 % (92.0-98.5); BG OXYHEMOGLOBIN 95.7 % (94.0-97.0); BG PH 7.434 (7.350-7.450); BG PO2 97.6 mmHg (75.0-100.0); BG SAMPLE SITE RIGHT RADIAL; BG TIDAL VOLUME(mL) 500 mL; BG TOTAL HEMOGLOBIN 9.9 g/dL (12.0-18.0); BG VENT MODE VENT - A/C; BG VENT RATE 18 set
[2020-05-16 14:26] LABS: BG BASE EXCESS 9.3 mmol/L (-2.0-2.0); BG CARBOXYHEMOGLOBIN 0.8 % (0.5-1.5); BG DEOXYHEMOGLOBIN 13.5 % (0.0-5.0); BG FRACTION INSPIRED OXYGEN 45; BG HCO3 ACT 36.5 mmol/L (22.0-26.0); BG METHEMOGLOBIN 0.3 % (0.0-1.5); BG OXYGEN SATURATION 86.3 % (92.0-98.5); BG OXYHEMOGLOBIN 85.4 % (94.0-97.0); BG PCO2 65.3 mmHg (35.0-45.0); BG PH 7.365 (7.350-7.450); BG PO2 57.2 mmHg (75.0-100.0); BG PRESSURE SUPPORT 10; BG SAMPLE SITE RIGHT RADIAL; BG TOTAL HEMOGLOBIN 10.5 g/dL (12.0-18.0); BG VENT MODE VENT - CPAP
[2020-05-16 18:03] LABS: BG BASE EXCESS 9.5 mmol/L (-2.0-2.0); BG DEOXYHEMOGLOBIN 5.7 % (0.0-5.0); BG FRACTION INSPIRED OXYGEN 45; BG HCO3 ACT 36.2 mmol/L (22.0-26.0); BG METHEMOGLOBIN 0.3 % (0.0-1.5); BG OXYGEN SATURATION 94.2 % (92.0-98.5); BG PCO2 60.7 mmHg (35.0-45.0); BG PH 7.393 (7.350-7.450); BG PO2 78.9 mmHg (75.0-100.0); BG PRESSURE SUPPORT 10; BG SAMPLE SITE RIGHT RADIAL; BG TOTAL HEMOGLOBIN 10.9 g/dL (12.0-18.0); BG VENT MODE VENT - CPAP
[2020-05-16] MEDS: ENOXAPARIN 40MG/0.4ML SYR SUBCUT SCH (21:00)
[2020-05-17] VITALS (84 sets, daily range): BP systolic 56–130; BP diastolic 36–90
[2020-05-17] MEDS: IPRATROPIUM/ALBUTEROL 0.5-3(2.5)MG/3ML NEB HHN SCH ×5 (00:23→20:45)
[2020-05-17] MEDS: MEROPENEM 500 MG in SODIUM CHLORIDE 0.9% 50 ML IV SCH ×3 (02:54→17:09)
[2020-05-17] MEDS: PROPOFOL 10MG/ML 100ML 100 ML IV PRN ×5 (03:45→23:58)
[2020-05-17] MEDS: LORAZEPAM 2MG/ML CPJ IV PRN (04:39)
[2020-05-17 06:10] LABS: BASOPHILS % 0.1 % (0.0-2.0); EOSINOPHILS % 0.2 % (0.0-5.0); HEMATOCRIT. 30.6 % (36.0-48.0); HEMOGLOBIN. 9.8 g/dL (12.0-16.0); LYMPHOCYTES % 9.6 % (20.0-50.0); MEAN CORPUSCULAR VOLUME 87.8 fL (81.0-99.0); MONOCYTES % 10.1 % (2.0-8.0); PLATELET 208 x1000/uL (130-400); RED BLOOD CELL COUNT 3.49 mill/uL (4.2-5.4); RED CELL DISTRIBUTION WIDTH 15.5 % (11.6-14.6)
[2020-05-17 06:14] LABS: CHLORIDE 108 mEq/L (98-107)
[2020-05-17] MEDS: FUROSEMIDE 40MG/4ML VIAL IV SCH ×2 (07:21→17:09)
[2020-05-17 09:57] LABS: BG BASE EXCESS 13.2 mmol/L (-2.0-2.0); BG CARBOXYHEMOGLOBIN 1.4 % (0.5-1.5); BG CPAP (cmH2O) 0 cm(H2O); BG DEOXYHEMOGLOBIN 9.6 % (0.0-5.0); BG HCO3 ACT 41.1 mmol/L (22.0-26.0); BG METHEMOGLOBIN 0.3 % (0.0-1.5); BG OXYGEN SATURATION 90.2 % (92.0-98.5); BG OXYHEMOGLOBIN 88.7 % (94.0-97.0); BG PCO2 70.3 mmHg (35.0-45.0); BG PH 7.385 (7.350-7.450); BG PO2 64.2 mmHg (75.0-100.0); BG SAMPLE SITE RIGHT RADIAL; BG TOTAL HEMOGLOBIN 12.1 g/dL (12.0-18.0); BG VENT MODE VENT - CPAP
[2020-05-17] MEDS: POTASSIUM CHLORIDE 20MEQ TABLET SR PO SCH (11:28)
[2020-05-17] MEDS: ENOXAPARIN 40MG/0.4ML SYR SUBCUT SCH ×2 (11:28→21:24)
[2020-05-17] MEDS: METHYLPREDNISOLONE SOD SUCC 40 MG/ML VIAL IV SCH ×2 (11:28→21:23)
[2020-05-17] MEDS: PANTOPRAZOLE SODIUM 40 MG/VIAL IV SCH (11:28)
[2020-05-18] VITALS (92 sets, daily range): BP systolic 28–160; BP diastolic 13–109
[2020-05-18] MEDS: MEROPENEM 500 MG in SODIUM CHLORIDE 0.9% 50 ML IV SCH ×3 (02:51→18:01)
[2020-05-18] MEDS: IPRATROPIUM/ALBUTEROL 0.5-3(2.5)MG/3ML NEB HHN SCH ×4 (03:18→20:09)
[2020-05-18 05:53] LABS: HEMATOCRIT. 34.1 % (36.0-48.0); HEMOGLOBIN. 10.6 g/dL (12.0-16.0); MEAN CORPUSCULAR HEMOGLOBIN 27.2 pg (28.0-32.0); MEAN CORPUSCULAR VOLUME 87.9 fL (81.0-99.0); PLATELET 216 x1000/uL (130-400); RED BLOOD CELL COUNT 3.88 mill/uL (4.2-5.4); RED CELL DISTRIBUTION WIDTH 15.7 % (11.6-14.6)
[2020-05-18 05:58] LABS: CHLORIDE 108 mEq/L (98-107)
[2020-05-18] MEDS: PROPOFOL 10MG/ML 100ML 100 ML IV PRN ×2 (06:14→12:58)
[2020-05-18] MEDS: FUROSEMIDE 40MG/4ML VIAL IV SCH ×2 (06:24→18:01)
[2020-05-18 08:22] LABS: BG CARBOXYHEMOGLOBIN 0.3 % (0.5-1.5); BG DEOXYHEMOGLOBIN 7.6 % (0.0-5.0); BG FRACTION INSPIRED OXYGEN 40; BG HCO3 ACT 35.6 mmol/L (22.0-26.0); BG METHEMOGLOBIN 0.3 % (0.0-1.5); BG OXYGEN SATURATION 92.4 % (92.0-98.5); BG OXYHEMOGLOBIN 91.8 % (94.0-97.0); BG PCO2 47.3 mmHg (35.0-45.0); BG PH 7.495 (7.350-7.450); BG PO2 64.9 mmHg (75.0-100.0); BG SAMPLE SITE RIGHT BRACHIAL; BG TIDAL VOLUME(mL) 500 mL; BG TOTAL HEMOGLOBIN 11.2 g/dL (12.0-18.0); BG VENT MODE VENT - A/C; BG VENT RATE 18 set
[2020-05-18] MEDS: AMLODIPINE 2.5MG TABLET NG SCH ×2 (09:21→21:32)
[2020-05-18] MEDS: METHYLPREDNISOLONE SOD SUCC 40 MG/ML VIAL IV SCH ×2 (09:21→21:32)
[2020-05-18] MEDS: ENOXAPARIN 40MG/0.4ML SYR SUBCUT SCH ×2 (09:22→21:27)
[2020-05-18] MEDS: POTASSIUM CHLORIDE 20MEQ TABLET SR PO SCH (09:23)
[2020-05-18] MEDS: PANTOPRAZOLE SODIUM 40 MG/VIAL IV SCH (09:23)
[2020-05-18 10:18] LABS: PLATELET ESTIMATE NORMAL
[2020-05-18 12:31] LABS: BG BASE EXCESS 9.3 mmol/L (-2.0-2.0); BG CARBOXYHEMOGLOBIN 1.2 % (0.5-1.5); BG FRACTION INSPIRED OXYGEN 40; BG HCO3 ACT 34.3 mmol/L (22.0-26.0); BG METHEMOGLOBIN 0.3 % (0.0-1.5); BG OXYGEN SATURATION 93.9 % (92.0-98.5); BG OXYHEMOGLOBIN 92.5 % (94.0-97.0); BG PCO2 48.9 mmHg (35.0-45.0); BG PH 7.464 (7.350-7.450); BG PO2 75.6 mmHg (75.0-100.0); BG SAMPLE SITE RIGHT BRACHIAL; BG TIDAL VOLUME(mL) 500 mL; BG TOTAL HEMOGLOBIN 11.7 g/dL (12.0-18.0); BG VENT MODE VENT - A/C; BG VENT RATE 18 set
[2020-05-18 14:56] LABS: BG BASE EXCESS 6.8 mmol/L (-2.0-2.0); BG CARBOXYHEMOGLOBIN 1.3 % (0.5-1.5); BG FRACTION INSPIRED OXYGEN 40; BG HCO3 ACT 34.5 mmol/L (22.0-26.0); BG OXYGEN SATURATION 93.9 % (92.0-98.5); BG OXYHEMOGLOBIN 92.7 % (94.0-97.0); BG PCO2 65.7 mmHg (35.0-45.0); BG PH 7.338 (7.350-7.450); BG PO2 83.6 mmHg (75.0-100.0); BG PRESSURE SUPPORT 10; BG SAMPLE SITE RIGHT BRACHIAL; BG TOTAL HEMOGLOBIN 11.9 g/dL (12.0-18.0); BG VENT MODE VENT - CPAP
[2020-05-18] MEDS ORDERED: PROPOFOL 10MG/ML 100ML 100 ML IV PRN (20:30)
[2020-05-18] MEDS ORDERED: LORAZEPAM 2MG/ML CPJ IM PRN (20:45)
[2020-05-18] MEDS ORDERED: LORAZEPAM 2MG/ML CPJ IV PRN (22:51)
[2020-05-19] VITALS (87 sets, daily range): BP systolic 93–161; BP diastolic 26–112
[2020-05-19] MEDS: IPRATROPIUM/ALBUTEROL 0.5-3(2.5)MG/3ML NEB HHN SCH ×4 (01:31→20:24)
[2020-05-19 05:56] LABS: HEMATOCRIT. 33.9 % (36.0-48.0); HEMOGLOBIN. 10.5 g/dL (12.0-16.0); MEAN CORPUSCULAR HEMOGLOBIN 27.6 pg (28.0-32.0); MEAN CORPUSCULAR VOLUME 88.9 fL (81.0-99.0); MEAN PLATELET VOLUME 10.2 fl (7.4-10.4); PLATELET 246 x1000/uL (130-400); RED BLOOD CELL COUNT 3.82 mill/uL (4.2-5.4); RED CELL DISTRIBUTION WIDTH 15.9 % (11.6-14.6)
[2020-05-19 06:08] LABS: CHLORIDE 108 mEq/L (98-107)
[2020-05-19] MEDS: FUROSEMIDE 40MG/4ML VIAL IV SCH ×2 (06:18→17:57)
[2020-05-19 07:30] LABS: PLATELET ESTIMATE NORMAL
[2020-05-19 09:29] LABS: BG BASE EXCESS 11.9 mmol/L (-2.0-2.0); BG CARBOXYHEMOGLOBIN 0.9 % (0.5-1.5); BG DEOXYHEMOGLOBIN 5.6 % (0.0-5.0); BG FRACTION INSPIRED OXYGEN 40; BG HCO3 ACT 37.6 mmol/L (22.0-26.0); BG METHEMOGLOBIN 0.3 % (0.0-1.5); BG OXYGEN SATURATION 94.3 % (92.0-98.5); BG OXYHEMOGLOBIN 93.2 % (94.0-97.0); BG PCO2 54.9 mmHg (35.0-45.0); BG PH 7.454 (7.350-7.450); BG PO2 75.7 mmHg (75.0-100.0); BG SAMPLE SITE RIGHT RADIAL; BG TIDAL VOLUME(mL) 500 mL; BG VENT MODE VENT - A/C; BG VENT RATE 18 set
[2020-05-19] MEDS: PANTOPRAZOLE SODIUM 40 MG/VIAL IV SCH (09:46)
[2020-05-19] MEDS: POTASSIUM CHLORIDE 20MEQ TABLET SR PO SCH (09:46)
[2020-05-19] MEDS: METHYLPREDNISOLONE SOD SUCC 40 MG/ML VIAL IV SCH ×2 (09:46→21:11)
[2020-05-19] MEDS: AMLODIPINE 2.5MG TABLET NG SCH ×2 (09:46→21:12)
[2020-05-19] MEDS: ENOXAPARIN 40MG/0.4ML SYR SUBCUT SCH ×2 (09:47→21:11)
[2020-05-19 11:23] LABS: BG BASE EXCESS 10.2 mmol/L (-2.0-2.0); BG CARBOXYHEMOGLOBIN 0.6 % (0.5-1.5); BG DEOXYHEMOGLOBIN 3.8 % (0.0-5.0); BG FRACTION INSPIRED OXYGEN 40; BG HCO3 ACT 36.2 mmol/L (22.0-26.0); BG METHEMOGLOBIN 0.3 % (0.0-1.5); BG OXYGEN SATURATION 96.2 % (92.0-98.5); BG OXYHEMOGLOBIN 95.3 % (94.0-97.0); BG PCO2 55.5 mmHg (35.0-45.0); BG PH 7.432 (7.350-7.450); BG PO2 90.2 mmHg (75.0-100.0); BG PRESSURE SUPPORT 10; BG SAMPLE SITE RIGHT RADIAL; BG TOTAL HEMOGLOBIN 11.3 g/dL (12.0-18.0); BG VENT MODE VENT - CPAP
[2020-05-19 20:13] LABS: BG CARBOXYHEMOGLOBIN 1.3 % (0.5-1.5); BG DEOXYHEMOGLOBIN 5.4 % (0.0-5.0); BG FRACTION INSPIRED OXYGEN 50; BG HCO3 ACT 35.5 mmol/L (22.0-26.0); BG METHEMOGLOBIN 0.3 % (0.0-1.5); BG OXYGEN SATURATION 94.5 % (92.0-98.5); BG PH 7.405 (7.350-7.450); BG PO2 80.6 mmHg (75.0-100.0); BG SAMPLE SITE RIGHT RADIAL; BG TOTAL HEMOGLOBIN 12.2 g/dL (12.0-18.0); BG VENT MODE MASK - AEROSOL
[2020-05-20] VITALS (70 sets, daily range): BP systolic 61–143; BP diastolic 32–86
[2020-05-20] MEDS: IPRATROPIUM/ALBUTEROL 0.5-3(2.5)MG/3ML NEB HHN SCH ×5 (00:43→20:27)
[2020-05-20 04:57] LABS: HEMATOCRIT 37.8 % (36.0-48.0); HEMOGLOBIN 11.7 g/dL (12.0-16.0); MEAN CORPUSCULAR HEMOGLOBIN 27.5 pg (28.0-32.0); MEAN CORPUSCULAR VOLUME 88.7 fL (81.0-99.0); PLATELET 262 x1000/uL (130-400); RED BLOOD CELL COUNT 4.26 mill/uL (4.2-5.4); RED CELL DISTRIBUTION WIDTH 15.8 % (11.6-14.6)
[2020-05-20 05:16] LABS: CHLORIDE 108 mEq/L (98-107)
[2020-05-20] MEDS: FUROSEMIDE 40MG/4ML VIAL IV SCH ×2 (06:16→16:10)
[2020-05-20] MEDS: METHYLPREDNISOLONE SOD SUCC 40 MG/ML VIAL IV SCH ×2 (08:50→20:40)
[2020-05-20] MEDS: POTASSIUM CHLORIDE 20MEQ TABLET SR PO SCH (08:50)
[2020-05-20] MEDS: PANTOPRAZOLE SODIUM 40 MG/VIAL IV SCH (08:50)
[2020-05-20] MEDS: AMLODIPINE 2.5MG TABLET NG SCH ×2 (08:51→20:40)
[2020-05-20] MEDS: ENOXAPARIN 40MG/0.4ML SYR SUBCUT SCH ×2 (08:52→20:39)
[2020-05-20 09:49] LABS: BG BASE EXCESS 11.7 mmol/L (-2.0-2.0); BG CARBOXYHEMOGLOBIN 1.7 % (0.5-1.5); BG DEOXYHEMOGLOBIN 7.3 % (0.0-5.0); BG FRACTION INSPIRED OXYGEN 36; BG HCO3 ACT 38.5 mmol/L (22.0-26.0); BG METHEMOGLOBIN 0.3 % (0.0-1.5); BG OXYGEN SATURATION 92.6 % (92.0-98.5); BG OXYHEMOGLOBIN 90.7 % (94.0-97.0); BG PCO2 59.9 mmHg (35.0-45.0); BG PH 7.426 (7.350-7.450); BG PO2 69.1 mmHg (75.0-100.0); BG SAMPLE SITE RIGHT RADIAL; BG TOTAL HEMOGLOBIN 13.2 g/dL (12.0-18.0); BG VENT MODE NASAL CANNULA
[2020-05-21] VITALS (12 sets, daily range): BP systolic 89–174; BP diastolic 38–80
[2020-05-21] MEDS: IPRATROPIUM/ALBUTEROL 0.5-3(2.5)MG/3ML NEB HHN SCH ×4 (00:58→20:33)
[2020-05-21] MEDS: FUROSEMIDE 40MG/4ML VIAL IV SCH (05:55)
[2020-05-21] MEDS: PANTOPRAZOLE SODIUM 40 MG/VIAL IV SCH (08:41)
[2020-05-21] MEDS: ENOXAPARIN 40MG/0.4ML SYR SUBCUT SCH ×2 (08:42→20:25)
[2020-05-21] MEDS: POTASSIUM CHLORIDE 20MEQ TABLET SR PO SCH (08:43)
[2020-05-21] MEDS: METHYLPREDNISOLONE SOD SUCC 40 MG/ML VIAL IV SCH (08:43)
[2020-05-21] MEDS: AMLODIPINE 2.5MG TABLET NG SCH ×2 (08:44→20:25)
[2020-05-21 12:30] LABS: HEMATOCRIT 39.1 % (36.0-48.0); HEMOGLOBIN 12.4 g/dL (12.0-16.0); MEAN CORPUSCULAR HEMOGLOBIN 27.8 pg (28.0-32.0); MEAN CORPUSCULAR VOLUME 87.5 fL (81.0-99.0); PLATELET 259 x1000/uL (130-400); RED BLOOD CELL COUNT 4.47 mill/uL (4.2-5.4); RED CELL DISTRIBUTION WIDTH 16.1 % (11.6-14.6)
[2020-05-21 12:38] LABS: CHLORIDE 102 mEq/L (98-107)
[2020-05-21 13:42] LABS: BG BASE EXCESS 9.7 mmol/L (-2.0-2.0); BG CARBOXYHEMOGLOBIN 1.4 % (0.5-1.5); BG HCO3 ACT 35.3 mmol/L (22.0-26.0); BG METHEMOGLOBIN 0.3 % (0.0-1.5); BG OXYGEN SATURATION 90.8 % (92.0-98.5); BG OXYHEMOGLOBIN 89.3 % (94.0-97.0); BG PCO2 52.1 mmHg (35.0-45.0); BG PH 7.449 (7.350-7.450); BG PO2 60.2 mmHg (75.0-100.0); BG SAMPLE SITE RIGHT RADIAL; BG TOTAL HEMOGLOBIN 12.5 g/dL (12.0-18.0); BG VENT MODE NASAL CANNULA
[2020-05-21] MEDS: ACETYLCYSTEINE 100MG/ML 10% VIAL 4ML INH SCH ×2 (14:35→20:33)
[2020-05-21] MEDS ORDERED: LORAZEPAM 2MG/ML CPJ IV PRN (14:51)
[2020-05-21] MEDS: ACETAMINOPHEN 325MG TABLET PO PRN (20:25)
[2020-05-21] MEDS: HYDROCODONE/ACETAMINOPHEN 5/325MG TABLET PO PRN (23:43)
[2020-05-22] VITALS (11 sets, daily range): BP systolic 97–143; BP diastolic 39–83
[2020-05-22] MEDS: IPRATROPIUM/ALBUTEROL 0.5-3(2.5)MG/3ML NEB HHN SCH ×4 (01:23→20:06)
[2020-05-22] MEDS: HYDROCODONE/ACETAMINOPHEN 5/325MG TABLET PO PRN (05:47)
[2020-05-22] MEDS: PANTOPRAZOLE SODIUM 40 MG/VIAL IV SCH (08:21)
[2020-05-22] MEDS: FUROSEMIDE 40MG/4ML VIAL IV SCH (08:22)
[2020-05-22] MEDS: METHYLPREDNISOLONE SOD SUCC 40 MG/ML VIAL IV SCH (08:22)
[2020-05-22] MEDS: ENOXAPARIN 40MG/0.4ML SYR SUBCUT SCH ×2 (08:23→21:26)
[2020-05-22] MEDS: AMLODIPINE 2.5MG TABLET NG SCH ×2 (08:24→21:00)
[2020-05-22] MEDS: POTASSIUM CHLORIDE 20MEQ TABLET SR PO SCH (08:25)
[2020-05-22] MEDS: ACETYLCYSTEINE 100MG/ML 10% VIAL 4ML INH SCH ×2 (08:49→14:09)
[2020-05-22 09:06] LABS: BG BASE EXCESS 8.1 mmol/L (-2.0-2.0); BG CARBOXYHEMOGLOBIN 1.9 % (0.5-1.5); BG DEOXYHEMOGLOBIN 7.4 % (0.0-5.0); BG FRACTION INSPIRED OXYGEN 36; BG HCO3 ACT 35.7 mmol/L (22.0-26.0); BG METHEMOGLOBIN 0.3 % (0.0-1.5); BG OXYGEN SATURATION 92.4 % (92.0-98.5); BG OXYHEMOGLOBIN 90.4 % (94.0-97.0); BG PCO2 65.9 mmHg (35.0-45.0); BG PH 7.352 (7.350-7.450); BG PO2 67.8 mmHg (75.0-100.0); BG SAMPLE SITE LEFT RADIAL; BG TOTAL HEMOGLOBIN 12.2 g/dL (12.0-18.0); BG VENT MODE NASAL CANNULA
[2020-05-22 10:02] LABS: CHLORIDE 101 mEq/L (98-107)
[2020-05-22] MEDS: ACETAMINOPHEN 325MG TABLET PO PRN (15:47)
[2020-05-23] VITALS (16 sets, daily range): BP systolic 79–130; BP diastolic 1–62
[2020-05-23] MEDS: IPRATROPIUM/ALBUTEROL 0.5-3(2.5)MG/3ML NEB HHN SCH ×4 (00:14→22:16)
[2020-05-23] MEDS: ACETYLCYSTEINE 100MG/ML 10% VIAL 4ML INH SCH ×3 (00:15→14:37)
[2020-05-23] MEDS: HYDROCODONE/ACETAMINOPHEN 5/325MG TABLET PO PRN ×3 (04:58→22:43)
[2020-05-23] MEDS: ENOXAPARIN 40MG/0.4ML SYR SUBCUT SCH ×2 (08:11→22:42)
[2020-05-23] MEDS: FUROSEMIDE 40MG/4ML VIAL IV SCH (08:11)
[2020-05-23] MEDS: FAMOTIDINE 20MG TABLET PO SCH ×2 (08:12→22:43)
[2020-05-23] MEDS: METHYLPREDNISOLONE SOD SUCC 40 MG/ML VIAL IV SCH (08:12)
[2020-05-23] MEDS: AMLODIPINE 2.5MG TABLET NG SCH ×2 (08:12→22:44)
[2020-05-23] MEDS: POTASSIUM CHLORIDE 20MEQ TABLET SR PO SCH (08:12)
[2020-05-23] MEDS ORDERED: POTASSIUM CHLORIDE 20MEQ TABLET SR PO NR (10:15)
[2020-05-24] VITALS (9 sets, daily range): BP systolic 98–155; BP diastolic 32–65
[2020-05-24] MEDS: IPRATROPIUM/ALBUTEROL 0.5-3(2.5)MG/3ML NEB HHN SCH ×2 (01:31→07:56)
[2020-05-24] MEDS: ACETYLCYSTEINE 100MG/ML 10% VIAL 4ML INH SCH (01:32)
[2020-05-24] MEDS: HYDROCODONE/ACETAMINOPHEN 5/325MG TABLET PO PRN (06:41)
[2020-05-24] MEDS: AMLODIPINE 2.5MG TABLET NG SCH (09:00)
[2020-05-24] MEDS: METHYLPREDNISOLONE SOD SUCC 40 MG/ML VIAL IV SCH (09:53)
[2020-05-24] MEDS: FUROSEMIDE 40MG/4ML VIAL IV SCH (09:53)
[2020-05-24] MEDS: FAMOTIDINE 20MG TABLET PO SCH (09:53)
[2020-05-24] MEDS: ENOXAPARIN 40MG/0.4ML SYR SUBCUT SCH (09:54)
[2020-05-24] MEDS: POTASSIUM CHLORIDE 20MEQ TABLET SR PO SCH (09:54)
== END 2020-05-24 15:10 | DRG 870 ==
LOC: ER 17:13 → MICUNO 22:54 → EDBEDREQ 05-11 00:17 → EDBEDREQTM 05-11 00:17 → EDBEDREQSVC 05-11 00:17 → ENRESERV 05-11 18:12 → 5EST 05-20 16:50
PROVIDERS: ADMIT Internal Medicine; ATTEND Internal Medicine
PROC: 0BH17EZ Insertion of Endotracheal Airway into Trachea, Via Natural or Artificial Opening (ICD-10-PCS; principal; 2020-05-10)
PROC: 5A1955Z Respiratory Ventilation, Greater than 96 Consecutive Hours (ICD-10-PCS; 2020-05-10)
PROC: 5A12012 Performance of Cardiac Output, Single, Manual (ICD-10-PCS; 2020-05-10)
PROC: 05HY33Z Insertion of Infusion Device into Upper Vein, Percutaneous Approach (ICD-10-PCS; 2020-05-10)
PROC: B54MZZA Ultrasonography of Right Upper Extremity Veins, Guidance (ICD-10-PCS; 2020-05-10)
PROC: 02HV33Z Insertion of Infusion Device into Superior Vena Cava, Percutaneous Approach (ICD-10-PCS; 2020-05-15)
PROC: B548ZZA Ultrasonography of Superior Vena Cava, Guidance (ICD-10-PCS; 2020-05-15)
PROC: 5A09357 Assistance with Respiratory Ventilation, Less than 24 Consecutive Hours, Continuous Positive Airway Pressure (ICD-10-PCS; 2020-05-21)
DX: A41.59 Other Gram-negative sepsis (principal); J96.01 Acute respiratory failure with hypoxia; I46.9 Cardiac arrest, cause unspecified; J15.6 Pneumonia due to other Gram-negative bacteria; I50.43 Acute on chronic combined systolic (congestive) and diastolic (congestive) heart failure; J96.02 Acute respiratory failure with hypercapnia; I42.9 Cardiomyopathy, unspecified; J44.0 Chronic obstructive pulmonary disease with (acute) lower respiratory infection; J44.1 Chronic obstructive pulmonary disease with (acute) exacerbation; N39.0 Urinary tract infection, site not specified; E87.2 Acidosis; I48.92 Unspecified atrial flutter; E46 Unspecified protein-calorie malnutrition; E66.2 Morbid (severe) obesity with alveolar hypoventilation; L03.116 Cellulitis of left lower limb; Z99.11 Dependence on respirator [ventilator] status; Z68.41 Body mass index [BMI] 40.0-44.9, adult; I11.0 Hypertensive heart disease with heart failure; Z99.81 Dependence on supplemental oxygen; I27.20 Pulmonary hypertension, unspecified; D64.9 Anemia, unspecified; E03.9 Hypothyroidism, unspecified; E78.00 Pure hypercholesterolemia, unspecified; E78.5 Hyperlipidemia, unspecified; I48.91 Unspecified atrial fibrillation; K57.90 Diverticulosis of intestine, part unspecified, without perforation or abscess without bleeding; K80.20 Calculus of gallbladder without cholecystitis without obstruction; M19.90 Unspecified osteoarthritis, unspecified site; I95.9 Hypotension, unspecified; R00.1 Bradycardia, unspecified; I45.81 Long QT syndrome; R74.0 Nonspecific elevation of levels of transaminase and lactic acid dehydrogenase [LDH]; M71.21 Synovial cyst of popliteal space [Baker], right knee; Z20.828 Contact with and (suspected) exposure to other viral communicable diseases; W18.30XA Fall on same level, unspecified, initial encounter; Y93.89 Activity, other specified; Y92.89 Other specified places as the place of occurrence of the external cause; Y99.8 Other external cause status; Z78.1 Physical restraint status; Z79.51 Long term (current) use of inhaled steroids; Z79.899 Other long term (current) drug therapy; Z88.0 Allergy status to penicillin; Z88.8 Allergy status to other drugs, medicaments and biological substances; Z88.1 Allergy status to other antibiotic agents
CPT/HCPCS: 31500; 36415; 36600; 71045; 71110; 73502; 73560; 73590; 73610; 73620; 74176; 76937; 80048; 80053; 80076; 80202; 81003; 82140; 82375; 82805; 82962; 83605; 83735; 83880; 84100; 84145; 84439; 84443; 84478; 84481; 84484; 85025; 85027; 86140; 86850; 86900; 87070; 87077; 87186; 87635; 92610; 93005; 93306; 93970; 94002; 94003; 94640; 94660; 97162; 97530; 99291; C1725; C9113; J1650; J1940; J1956; J2060; J2185; J2270; J2405; J2704; J2920; J3370; J3480; J3490; J7060; J7608; P9047; C9803-CS

== ENCOUNTER 2020-09-25 21:36 | Inpatient (IN) | payer OTHER, MEDICAID ==
[~2020-09-25] VITALS: Ht 162.6 cm; Wt 110.7 kg
[2020-09-25] MEDS ORDERED: VANCOMYCIN 1 G PREMIX 200 ML IV ONE (21:45)
[2020-09-25] MEDS ORDERED: PROPOFOL 10MG/ML 100ML 100 ML IV ONE (21:45)
[2020-09-25] MEDS ORDERED: MEROPENEM 1,000 MG in SODIUM CHLORIDE 0.9% 100 ML IV ONE (21:45)
[2020-09-25 22:48] LABS: CHLORIDE 100 mEq/L (98-107)
[2020-09-25 22:52] LABS: ETHANOL BLOOD < 10 mg/dL
[2020-09-26 00:05] LABS: HEMATOCRIT. 41.6 % (36.0-48.0); HEMOGLOBIN. 13.3 g/dL (12.0-16.0); MEAN CORPUSCULAR HEMOGLOBIN 28.1 pg (28.0-32.0); MEAN CORPUSCULAR VOLUME 87.9 fL (81.0-99.0); MEAN PLATELET VOLUME 9.9 fl (7.4-10.4); PLATELET 237 x1000/uL (130-400); RED BLOOD CELL COUNT 4.74 mill/uL (4.2-5.4); RED CELL DISTRIBUTION WIDTH 15.4 % (11.6-14.6)
[2020-09-26 00:14] LABS: PROTHROMBIN TIME 10.3 sec (9.6-11.0)
[2020-09-26 00:26] LABS: PLATELET ESTIMATE NORMAL
[2020-09-26] MEDS ORDERED: EPINEPHRINE 0.1MG/ML (1:10,000) 10ML SYR ONE (01:00)
[2020-09-26] MEDS ORDERED: ETOMIDATE 2MG/ML 10ML VIAL IV ONE (01:00)
[2020-09-26] MEDS ORDERED: SODIUM BICARBONATE 8.4% 1 MEQ/ML 50ML SYR IV ONE (01:00)
[2020-09-26] MEDS ORDERED: SODIUM CHLORIDE 0.9% 10ML VIAL ONE (01:00)
[2020-09-26] MEDS ORDERED: DEXTROSE 50% WATER 50ML SYRINGE IV ONE (01:00)
[2020-09-26] MEDS ORDERED: CALCIUM CHLORIDE 1GM/10ML SYR IV ONE (01:00)
[2020-09-26] MEDS ORDERED: VECURONIUM BROMIDE 10 MG/VIAL IV ONE (01:00)
[2020-09-26] MEDS ORDERED: PROPOFOL 10MG/ML 100ML 100 ML IV STA (01:22)
[2020-09-26] MEDS ORDERED: DEXAMETHASONE 10 MG/ML VIAL IV ONE (01:30)
[2020-09-26 02:33] LABS: BG BASE EXCESS 4.5 mmol/L (-2.0-2.0); BG CARBOXYHEMOGLOBIN 0.4 % (0.5-1.5); BG DEOXYHEMOGLOBIN 2.6 % (0.0-5.0); BG FRACTION INSPIRED OXYGEN 100; BG HCO3 ACT 37.8 mmol/L (22.0-26.0); BG METHEMOGLOBIN 0.3 % (0.0-1.5); BG OXYGEN SATURATION 97.4 % (92.0-98.5); BG OXYHEMOGLOBIN 96.7 % (94.0-97.0); BG PH 7.127 (7.350-7.450); BG PO2 125.4 mmHg (75.0-100.0); BG SAMPLE SITE LEFT RADIAL; BG TOTAL HEMOGLOBIN 13.6 g/dL (12.0-18.0); BG VENT MODE VENT - AC
[2020-09-26 02:46] LABS: CLARITY URINE CLOUDY (CLEAR); COLOR URINE YELLOW (YELLOW); KETONES URINE TRACE (NEGATIVE); LEUKOCYTE ESTERASE URINE NEGATIVE (NEGATIVE); NITRITE URINE NEGATIVE (NEGATIVE); OCCULT BLOOD URINE NEGATIVE (NEGATIVE); PROTEIN URINE 3+ (NEGATIVE); SPECIFIC GRAVITY URINE 1.021 (1.005-1.030); UROBILINOGEN URINE 0.2 E.U./dL (0.2-1.0)
[2020-09-26] MEDS ORDERED: PROPOFOL 10MG/ML 100ML 100 ML IV PRN ×2 (03:00→10:30)
[2020-09-26] MEDS ORDERED: NOREPINEPHRINE 8 MG in DEXTROSE 5% WATER 250 ML IV PRN (03:00)
[2020-09-26 03:26] LABS: *AMPHETAMINES SCREEN URINE NEGATIVE (NEGATIVE); *BARBITURATES SCREEN URINE NEGATIVE (NEGATIVE); *BENZODIAZEPINES SCREEN URINE NEGATIVE (NEGATIVE); *COCAINE SCREEN URINE NEGATIVE (NEGATIVE)
[2020-09-26 03:27] LABS: CANNABINOID URINE SCREEN NEGATIVE (NEGATIVE); METHADONE URINE SCREEN NEGATIVE (NEGATIVE); OPIATES URINE SCREEN NEGATIVE (NEGATIVE); PHENCYCLIDINE URINE SCREEN NEGATIVE (NEGATIVE)
[2020-09-26 04:57] LABS: BG BASE EXCESS 4.4 mmol/L (-2.0-2.0); BG CARBOXYHEMOGLOBIN 0.3 % (0.5-1.5); BG DEOXYHEMOGLOBIN 1.3 % (0.0-5.0); BG FRACTION INSPIRED OXYGEN 100; BG HCO3 ACT 34.4 mmol/L (22.0-26.0); BG METHEMOGLOBIN 0.3 % (0.0-1.5); BG OXYGEN SATURATION 98.7 % (92.0-98.5); BG OXYHEMOGLOBIN 98.1 % (94.0-97.0); BG PCO2 80.2 mmHg (35.0-45.0); BG PO2 160.2 mmHg (75.0-100.0); BG SAMPLE SITE RIGHT RADIAL; BG TOTAL HEMOGLOBIN 13.8 g/dL (12.0-18.0); BG VENT MODE VENT - AC
[2020-09-26] MEDS: AZTREONAM 2GM in DEXTROSE 5% WATER 100ML IV SCH (10:03)
[2020-09-26] MEDS ORDERED: DEXTROSE 50% WATER 50ML SYRINGE IV PRN (10:30)
[2020-09-26] MEDS ORDERED: MORPHINE SULFATE 2 MG/ML CPJ (NOT FOR IM USE) IV PRN (10:30)
[2020-09-26] MEDS ORDERED: AZTREONAM 500 MG in DEXTROSE 5% WATER 50 ML IV SCH (11:00)
[2020-09-26] MEDS: IPRATROPIUM/ALBUTEROL 0.5-3(2.5)MG/3ML NEB HHN SCH ×3 (11:43→20:55)
[2020-09-26] MEDS: DEXAMETHASONE 10 MG/ML VIAL IV SCH (12:04)
[2020-09-26] MEDS: FAMOTIDINE 20MG/2ML VIAL IV SCH (12:04)
[2020-09-26] MEDS: METRONIDAZOLE 500 MG PREMIX 100 ML IV SCH ×2 (12:04→20:21)
[2020-09-26] MEDS: ENOXAPARIN 30MG/0.3ML SYR SUBCUT SCH ×2 (12:04→21:00)
[2020-09-26 12:30] LABS: BG BASE EXCESS 10.9 mmol/L (-2.0-2.0); BG CARBOXYHEMOGLOBIN 0.3 % (0.5-1.5); BG DEOXYHEMOGLOBIN 2.5 % (0.0-5.0); BG FRACTION INSPIRED OXYGEN 100; BG HCO3 ACT 37.5 mmol/L (22.0-26.0); BG METHEMOGLOBIN 0.1 % (0.0-1.5); BG OXYGEN SATURATION 97.5 % (92.0-98.5); BG OXYHEMOGLOBIN 97.1 % (94.0-97.0); BG PCO2 58.8 mmHg (35.0-45.0); BG PH 7.423 (7.350-7.450); BG PO2 103.2 mmHg (75.0-100.0); BG SAMPLE SITE RIGHT RADIAL; BG TOTAL HEMOGLOBIN 13.3 g/dL (12.0-18.0); BG VENT MODE VENT - AC
[2020-09-26 14:51] LABS: HEMATOCRIT. 39.8 % (36.0-48.0); HEMOGLOBIN. 12.7 g/dL (12.0-16.0); MEAN CORPUSCULAR HEMOGLOBIN 27.7 pg (28.0-32.0); MEAN CORPUSCULAR VOLUME 86.6 fL (81.0-99.0); MEAN PLATELET VOLUME 10.5 fl (7.4-10.4); PLATELET 241 x1000/uL (130-400); RED CELL DISTRIBUTION WIDTH 15.3 % (11.6-14.6)
[2020-09-26 14:57] LABS: CHLORIDE 101 mEq/L (98-107)
[2020-09-26] MEDS ORDERED: MIDAZOLAM HCL 50 MG in DEXTROSE 5% WATER 40 ML IV PRN (15:15)
[2020-09-26] MEDS ORDERED: FENTANYL CITRATE/PF 500 MCG in SODIUM CHLORIDE 0.9% 40 ML IV PRN (15:15)
[2020-09-26 15:24] LABS: PLATELET ESTIMATE NORMAL
[2020-09-26] MEDS ORDERED: FENTANYL CITRATE 2,500 MCG in SODIUM CHLORIDE 0.9% 200 ML IV PRN (15:30)
[2020-09-26] MEDS ORDERED: MIDAZOLAM HCL 100 MG in DEXT 5% WATER 100 ML IV PRN (15:30)
[2020-09-26] MEDS ORDERED: HYDRALAZINE 20MG/ML VIAL IV PRN (15:45)
[2020-09-26] MEDS ORDERED: ACETAMINOPHEN 650MG SUPP PR PRN (15:45)
[2020-09-26] MEDS ORDERED: ONDANSETRON HCL 4MG/2ML INJ IV PRN (15:45)
[2020-09-26] MEDS: INSULIN LISPRO 100 UNITS/ML SUBCUT SCH ×3 (17:00→21:00)
[2020-09-26] MEDS: BLOOD SUGAR DIAGNOSTIC STRIP TEST SCH ×2 (17:00→21:00)
[2020-09-26] MEDS ORDERED: FENTANYL CITRATE/PF 2,500 MCG in SODIUM CHLORIDE 0.9% 200 ML IV PRN (17:23)
[2020-09-27] MEDS: IPRATROPIUM/ALBUTEROL 0.5-3(2.5)MG/3ML NEB HHN SCH ×4 (00:53→21:42)
[2020-09-27 05:25] LABS: HEMATOCRIT 33.2 % (36.0-48.0); HEMOGLOBIN 10.8 g/dL (12.0-16.0); MEAN CORPUSCULAR HEMOGLOBIN 27.9 pg (28.0-32.0); MEAN CORPUSCULAR VOLUME 85.9 fL (81.0-99.0); PLATELET 164 x1000/uL (130-400); RED BLOOD CELL COUNT 3.87 mill/uL (4.2-5.4); RED CELL DISTRIBUTION WIDTH 15.3 % (11.6-14.6)
[2020-09-27] MEDS: METRONIDAZOLE 500 MG PREMIX 100 ML IV SCH ×3 (08:54→18:13)
[2020-09-27] MEDS: SILDENAFIL CITRATE 20MG TABLET PO SCH ×4 (08:55→22:00)
[2020-09-27] MEDS: AZTREONAM 2GM in DEXTROSE 5% WATER 100ML IV SCH ×3 (09:23→21:09)
[2020-09-27] MEDS: DEXAMETHASONE 10 MG/ML VIAL IV SCH (09:28)
[2020-09-27] MEDS: FAMOTIDINE 20MG/2ML VIAL IV SCH (09:30)
[2020-09-27] MEDS: ENOXAPARIN 30MG/0.3ML SYR SUBCUT SCH ×2 (09:31→20:24)
[2020-09-27] MEDS: INSULIN LISPRO 100 UNITS/ML SUBCUT SCH ×4 (09:45→20:24)
[2020-09-27] MEDS: BLOOD SUGAR DIAGNOSTIC STRIP TEST SCH ×4 (09:45→20:24)
[2020-09-27 10:20] LABS: BG BASE EXCESS 4.5 mmol/L (-2.0-2.0); BG CARBOXYHEMOGLOBIN 0.3 % (0.5-1.5); BG DEOXYHEMOGLOBIN 1.2 % (0.0-5.0); BG FRACTION INSPIRED OXYGEN 60; BG HCO3 ACT 28.8 mmol/L (22.0-26.0); BG METHEMOGLOBIN 0.3 % (0.0-1.5); BG OXYGEN SATURATION 98.8 % (92.0-98.5); BG OXYHEMOGLOBIN 98.2 % (94.0-97.0); BG PCO2 41.9 mmHg (35.0-45.0); BG PH 7.455 (7.350-7.450); BG PO2 153.9 mmHg (75.0-100.0); BG SAMPLE SITE LEFT BRACHIAL; BG TOTAL HEMOGLOBIN 11.1 g/dL (12.0-18.0); BG VENT MODE VENT - AC
[2020-09-27] MEDS: FUROSEMIDE 40MG/4ML VIAL IVP SCH (18:06)
[2020-09-27] MEDS ORDERED: DOPAMINE 400MG/250ML PREMIX 250 ML IV PRN (18:30)
[2020-09-28] MEDS: IPRATROPIUM/ALBUTEROL 0.5-3(2.5)MG/3ML NEB HHN SCH ×4 (03:07→22:37)
[2020-09-28] MEDS: METRONIDAZOLE 500 MG PREMIX 100 ML IV SCH ×3 (03:27→19:41)
[2020-09-28 04:13] LABS: CHLORIDE 106 mEq/L (98-107); HEMATOCRIT. 31.8 % (36.0-48.0); HEMOGLOBIN. 10.5 g/dL (12.0-16.0); LYMPHOCYTES % 8.6 % (20.0-50.0); MEAN CORPUSCULAR HEMOGLOBIN 28.5 pg (28.0-32.0); MEAN CORPUSCULAR VOLUME 86.6 fL (81.0-99.0); MEAN PLATELET VOLUME 10.4 fl (7.4-10.4); MONOCYTES % 7.6 % (2.0-8.0); NEUTROPHILS % 83.8 % (40.0-76.0); PLATELET 162 x1000/uL (130-400); RED BLOOD CELL COUNT 3.67 mill/uL (4.2-5.4); RED CELL DISTRIBUTION WIDTH 15.4 % (11.6-14.6)
[2020-09-28] MEDS: SILDENAFIL CITRATE 20MG TABLET PO SCH ×3 (06:00→22:55)
[2020-09-28] MEDS: AZTREONAM 2GM in DEXTROSE 5% WATER 100ML IV SCH ×3 (06:45→22:55)
[2020-09-28] MEDS: INSULIN LISPRO 100 UNITS/ML SUBCUT SCH ×4 (07:00→22:14)
[2020-09-28] MEDS: BLOOD SUGAR DIAGNOSTIC STRIP TEST SCH ×4 (07:43→22:14)
[2020-09-28 09:49] LABS: BG BASE EXCESS 4.6 mmol/L (-2.0-2.0); BG CARBOXYHEMOGLOBIN 0.3 % (0.5-1.5); BG DEOXYHEMOGLOBIN 2.9 % (0.0-5.0); BG FRACTION INSPIRED OXYGEN 50; BG HCO3 ACT 29.4 mmol/L (22.0-26.0); BG METHEMOGLOBIN 0.3 % (0.0-1.5); BG OXYGEN SATURATION 97.1 % (92.0-98.5); BG OXYHEMOGLOBIN 96.5 % (94.0-97.0); BG PCO2 44.6 mmHg (35.0-45.0); BG PH 7.437 (7.350-7.450); BG PO2 103.4 mmHg (75.0-100.0); BG SAMPLE SITE RIGHT RADIAL; BG TOTAL HEMOGLOBIN 11.1 g/dL (12.0-18.0); BG TOTAL RESPIRATORY RATE 18 b/min; BG VENT MODE VENT - AC
[2020-09-28] MEDS: DEXAMETHASONE 10 MG/ML VIAL IV SCH (10:34)
[2020-09-28] MEDS: FAMOTIDINE 20MG/2ML VIAL IV SCH (10:35)
[2020-09-28] MEDS: LISINOPRIL 2.5MG TABLET PO SCH (10:36)
[2020-09-28] MEDS: ENOXAPARIN 30MG/0.3ML SYR SUBCUT SCH ×2 (10:37→22:59)
[2020-09-28] MEDS: FUROSEMIDE 40MG/4ML VIAL IVP SCH (10:40)
[2020-09-28] MEDS: DEXT 5%/0.9% NACL 1,000 ML IV SCH (16:19)
[2020-09-28] MEDS ORDERED: ATROPINE SULFATE 1MG/10ML SYR IV PRN (19:00)
[2020-09-29] MEDS: METRONIDAZOLE 500 MG PREMIX 100 ML IV SCH ×3 (03:00→21:40)
[2020-09-29] MEDS: IPRATROPIUM/ALBUTEROL 0.5-3(2.5)MG/3ML NEB HHN SCH ×4 (03:32→21:30)
[2020-09-29] MEDS: DEXT 5%/0.9% NACL 1,000 ML IV SCH ×2 (04:40→18:35)
[2020-09-29 05:04] LABS: CHLORIDE 106 mEq/L (98-107)
[2020-09-29 06:32] LABS: BASOPHILS % 0.1 % (0.0-2.0); HEMOGLOBIN. 11.2 g/dL (12.0-16.0); LYMPHOCYTES % 7.2 % (20.0-50.0); MEAN CORPUSCULAR HEMOGLOBIN 28.4 pg (28.0-32.0); MEAN CORPUSCULAR VOLUME 86.6 fL (81.0-99.0); MEAN PLATELET VOLUME 10.6 fl (7.4-10.4); MONOCYTES % 7.1 % (2.0-8.0); NEUTROPHILS % 85.6 % (40.0-76.0); PLATELET 180 x1000/uL (130-400); RED BLOOD CELL COUNT 3.93 mill/uL (4.2-5.4); RED CELL DISTRIBUTION WIDTH 15.4 % (11.6-14.6)
[2020-09-29] MEDS: INSULIN LISPRO 100 UNITS/ML SUBCUT SCH ×3 (07:00→21:00)
[2020-09-29] MEDS: BLOOD SUGAR DIAGNOSTIC STRIP TEST SCH ×3 (07:18→21:40)
[2020-09-29] MEDS: LISINOPRIL 2.5MG TABLET PO SCH (10:24)
[2020-09-29] MEDS: ENOXAPARIN 30MG/0.3ML SYR SUBCUT SCH ×2 (10:24→21:40)
[2020-09-29] MEDS: FAMOTIDINE 20MG/2ML VIAL IV SCH (10:25)
[2020-09-29] MEDS: SILDENAFIL CITRATE 20MG TABLET PO SCH ×3 (10:25→23:29)
[2020-09-29] MEDS: DEXAMETHASONE 10 MG/ML VIAL IV SCH (10:25)
[2020-09-29] MEDS: FUROSEMIDE 40MG/4ML VIAL IVP SCH (10:25)
[2020-09-29 15:11] LABS: BG BASE EXCESS 3.7 mmol/L (-2.0-2.0); BG DEOXYHEMOGLOBIN 4.6 % (0.0-5.0); BG FRACTION INSPIRED OXYGEN 50; BG HCO3 ACT 27.8 mmol/L (22.0-26.0); BG METHEMOGLOBIN 0.3 % (0.0-1.5); BG OXYGEN SATURATION 95.4 % (92.0-98.5); BG OXYHEMOGLOBIN 95.1 % (94.0-97.0); BG PCO2 40.1 mmHg (35.0-45.0); BG PH 7.458 (7.350-7.450); BG PO2 79.5 mmHg (75.0-100.0); BG SAMPLE SITE RIGHT RADIAL; BG TOTAL HEMOGLOBIN 12.1 g/dL (12.0-18.0); BG TOTAL RESPIRATORY RATE 18 b/min; BG VENT MODE VENT - AC
[2020-09-29] MEDS: AZTREONAM 2GM in DEXTROSE 5% WATER 100ML IV SCH ×2 (15:20→23:29)
[2020-09-29] MEDS: MIDAZOLAM HCL 100 MG in SODIUM CHLORIDE 0.9% 80 ML IV PRN (23:40)
[2020-09-30] MEDS: IPRATROPIUM/ALBUTEROL 0.5-3(2.5)MG/3ML NEB HHN SCH ×4 (02:23→20:26)
[2020-09-30] MEDS: METRONIDAZOLE 500 MG PREMIX 100 ML IV SCH ×3 (03:38→18:36)
[2020-09-30 04:39] LABS: BASOPHILS % 0.1 % (0.0-2.0); CHLORIDE 104 mEq/L (98-107); HEMATOCRIT. 33.8 % (36.0-48.0); HEMOGLOBIN. 11.2 g/dL (12.0-16.0); LYMPHOCYTES % 7.1 % (20.0-50.0); MEAN CORPUSCULAR HEMOGLOBIN 28.6 pg (28.0-32.0); MEAN CORPUSCULAR VOLUME 86.5 fL (81.0-99.0); MEAN PLATELET VOLUME 10.5 fl (7.4-10.4); MONOCYTES % 7.2 % (2.0-8.0); NEUTROPHILS % 85.6 % (40.0-76.0); PLATELET 180 x1000/uL (130-400); RED CELL DISTRIBUTION WIDTH 15.6 % (11.6-14.6)
[2020-09-30] MEDS: SILDENAFIL CITRATE 20MG TABLET PO SCH ×2 (06:19→14:35)
[2020-09-30] MEDS: BLOOD SUGAR DIAGNOSTIC STRIP TEST SCH ×4 (06:48→21:19)
[2020-09-30] MEDS: INSULIN LISPRO 100 UNITS/ML SUBCUT SCH ×4 (06:48→21:00)
[2020-09-30] MEDS: AZTREONAM 2GM in DEXTROSE 5% WATER 100ML IV SCH ×2 (07:00→14:32)
[2020-09-30] MEDS: DEXT 5%/0.9% NACL 1,000 ML IV SCH ×2 (08:12→21:40)
[2020-09-30] MEDS: MIDAZOLAM HCL 100 MG in SODIUM CHLORIDE 0.9% 80 ML IV PRN (08:42)
[2020-09-30] MEDS: LISINOPRIL 2.5MG TABLET PO SCH (09:00)
[2020-09-30] MEDS: FAMOTIDINE 20MG/2ML VIAL IV SCH (09:07)
[2020-09-30] MEDS: DEXAMETHASONE 10 MG/ML VIAL IV SCH (09:07)
[2020-09-30] MEDS: FUROSEMIDE 40MG/4ML VIAL IVP SCH (09:08)
[2020-09-30] MEDS: ENOXAPARIN 30MG/0.3ML SYR SUBCUT SCH ×2 (09:27→21:40)
[2020-09-30 10:35] LABS: BG BASE EXCESS 2.1 mmol/L (-2.0-2.0); BG CARBOXYHEMOGLOBIN 0.4 % (0.5-1.5); BG DEOXYHEMOGLOBIN 6.7 % (0.0-5.0); BG FRACTION INSPIRED OXYGEN 40; BG HCO3 ACT 26.8 mmol/L (22.0-26.0); BG METHEMOGLOBIN 0.2 % (0.0-1.5); BG OXYGEN SATURATION 93.3 % (92.0-98.5); BG OXYHEMOGLOBIN 92.7 % (94.0-97.0); BG PCO2 42.1 mmHg (35.0-45.0); BG PH 7.422 (7.350-7.450); BG PO2 72.6 mmHg (75.0-100.0); BG SAMPLE SITE RIGHT RADIAL; BG TOTAL HEMOGLOBIN 13.1 g/dL (12.0-18.0); BG VENT MODE VENT - AC
[2020-09-30 17:29] LABS: BASOPHILS % 0.4 % (0.0-2.0); EOSINOPHILS % 0.1 % (0.0-5.0); HEMATOCRIT. 40.3 % (36.0-48.0); HEMOGLOBIN. 12.6 g/dL (12.0-16.0); LYMPHOCYTES % 7.3 % (20.0-50.0); MEAN CORPUSCULAR HEMOGLOBIN 27.3 pg (28.0-32.0); MEAN CORPUSCULAR VOLUME 87.6 fL (81.0-99.0); MEAN PLATELET VOLUME 10.3 fl (7.4-10.4); MONOCYTES % 2.5 % (2.0-8.0); NEUTROPHILS % 89.7 % (40.0-76.0); PLATELET 250 x1000/uL (130-400); RED CELL DISTRIBUTION WIDTH 15.9 % (11.6-14.6)
[2020-09-30 17:34] LABS: CHLORIDE 103 mEq/L (98-107)
[2020-10-01] MEDS: AZTREONAM 2GM in DEXTROSE 5% WATER 100ML IV SCH ×3 (00:31→14:30)
[2020-10-01] MEDS: METHYLPREDNISOLONE SOD SUCC 40 MG/ML VIAL IV SCH ×4 (00:33→23:00)
[2020-10-01] MEDS: SILDENAFIL CITRATE 20MG TABLET PO SCH ×4 (00:34→22:00)
[2020-10-01] MEDS: METRONIDAZOLE 500 MG PREMIX 100 ML IV SCH (03:18)
[2020-10-01] MEDS: BLOOD SUGAR DIAGNOSTIC STRIP TEST SCH ×4 (06:35→23:00)
[2020-10-01] MEDS: INSULIN LISPRO 100 UNITS/ML SUBCUT SCH ×4 (06:36→21:00)
[2020-10-01] MEDS: MIDAZOLAM HCL 100 MG in SODIUM CHLORIDE 0.9% 80 ML IV PRN ×2 (07:43→19:05)
[2020-10-01] MEDS: FUROSEMIDE 40MG/4ML VIAL IVP SCH ×2 (08:00→17:01)
[2020-10-01 08:13] LABS: BG BASE EXCESS 2.2 mmol/L (-2.0-2.0); BG CARBOXYHEMOGLOBIN 0.3 % (0.5-1.5); BG DEOXYHEMOGLOBIN 9.8 % (0.0-5.0); BG HCO3 ACT 27.5 mmol/L (22.0-26.0); BG METHEMOGLOBIN 0.3 % (0.0-1.5); BG OXYGEN SATURATION 90.1 % (92.0-98.5); BG OXYHEMOGLOBIN 89.6 % (94.0-97.0); BG PCO2 45.9 mmHg (35.0-45.0); BG PH 7.396 (7.350-7.450); BG PO2 60.3 mmHg (75.0-100.0); BG SAMPLE SITE RIGHT RADIAL; BG TOTAL HEMOGLOBIN 11.9 g/dL (12.0-18.0); BG VENT MODE VENT - AC
[2020-10-01] MEDS: FAMOTIDINE 20MG/2ML VIAL IV SCH (08:46)
[2020-10-01] MEDS: IPRATROPIUM/ALBUTEROL 0.5-3(2.5)MG/3ML NEB HHN SCH ×3 (08:48→20:40)
[2020-10-01] MEDS: LISINOPRIL 2.5MG TABLET PO SCH (09:00)
[2020-10-01] MEDS: ENOXAPARIN 30MG/0.3ML SYR SUBCUT SCH ×2 (09:09→23:00)
[2020-10-01] MEDS ORDERED: FUROSEMIDE 20MG/2ML VIAL IVP SCH (09:45)
[2020-10-01 09:48] LABS: CHLORIDE 108 mEq/L (98-107)
[2020-10-01] MEDS ORDERED: LIDOCAINE HCL/PF 1% 2ML VIAL ONE (10:00)
[2020-10-01] MEDS ORDERED: POTASSIUM CHLORIDE 20MEQ/PACKET PO SCH (11:00)
[2020-10-01 16:30] LABS: HEMATOCRIT. 38.3 % (36.0-48.0); HEMOGLOBIN. 12.3 g/dL (12.0-16.0); MEAN CORPUSCULAR VOLUME 87.4 fL (81.0-99.0); RED BLOOD CELL COUNT 4.38 mill/uL (4.2-5.4); RED CELL DISTRIBUTION WIDTH 15.5 % (11.6-14.6)
[2020-10-01 17:18] LABS: PLATELET 173 x1000/uL (130-400)
[2020-10-01 17:19] LABS: MEAN PLATELET VOLUME 11.2 fl (7.4-10.4); PLATELET ESTIMATE NORMAL
[2020-10-01 20:09] LABS: BG BASE EXCESS 3.9 mmol/L (-2.0-2.0); BG CARBOXYHEMOGLOBIN 0.2 % (0.5-1.5); BG HCO3 ACT 27.9 mmol/L (22.0-26.0); BG METHEMOGLOBIN 0.3 % (0.0-1.5); BG OXYHEMOGLOBIN 95.5 % (94.0-97.0); BG PCO2 39.8 mmHg (35.0-45.0); BG PH 7.463 (7.350-7.450); BG PO2 84.9 mmHg (75.0-100.0); BG SAMPLE SITE RIGHT RADIAL; BG TOTAL HEMOGLOBIN 12.7 g/dL (12.0-18.0); BG TOTAL RESPIRATORY RATE 18 b/min; BG VENT MODE VENT - AC
[2020-10-02] VITALS (10 sets, daily range): BP systolic 101–128; BP diastolic 46–69
[2020-10-02] MEDS: AZTREONAM 2GM in DEXTROSE 5% WATER 100ML IV SCH (01:00)
[2020-10-02] MEDS: IPRATROPIUM/ALBUTEROL 0.5-3(2.5)MG/3ML NEB HHN SCH ×4 (02:13→20:46)
[2020-10-02] MEDS: SILDENAFIL CITRATE 20MG TABLET PO SCH ×3 (05:45→22:00)
[2020-10-02] MEDS: METHYLPREDNISOLONE SOD SUCC 40 MG/ML VIAL IV SCH ×3 (05:45→22:00)
[2020-10-02 05:51] LABS: HEMATOCRIT. 36.9 % (36.0-48.0); MEAN CORPUSCULAR HEMOGLOBIN 28.3 pg (28.0-32.0); MEAN CORPUSCULAR VOLUME 86.9 fL (81.0-99.0); MEAN PLATELET VOLUME 10.6 fl (7.4-10.4); PLATELET 177 x1000/uL (130-400); RED BLOOD CELL COUNT 4.24 mill/uL (4.2-5.4); RED CELL DISTRIBUTION WIDTH 15.3 % (11.6-14.6)
[2020-10-02 05:59] LABS: CHLORIDE 108 mEq/L (98-107)
[2020-10-02] MEDS: INSULIN LISPRO 100 UNITS/ML SUBCUT SCH ×4 (06:04→21:00)
[2020-10-02] MEDS: BLOOD SUGAR DIAGNOSTIC STRIP TEST SCH ×4 (06:04→21:00)
[2020-10-02 07:26] LABS: PLATELET ESTIMATE NORMAL
[2020-10-02] MEDS: FUROSEMIDE 40MG/4ML VIAL IVP SCH ×2 (07:53→18:10)
[2020-10-02] MEDS: LISINOPRIL 2.5MG TABLET PO SCH (09:00)
[2020-10-02] MEDS ORDERED: MIDAZOLAM HCL 100 MG in SODIUM CHLORIDE 0.9% 80 ML IV PRN (09:30)
[2020-10-02] MEDS: FAMOTIDINE 20MG/2ML VIAL IV SCH (09:41)
[2020-10-02] MEDS: ENOXAPARIN 30MG/0.3ML SYR SUBCUT SCH ×2 (09:42→21:00)
[2020-10-02 11:10] LABS: BG BASE EXCESS 3.7 mmol/L (-2.0-2.0); BG CARBOXYHEMOGLOBIN 0.5 % (0.5-1.5); BG DEOXYHEMOGLOBIN 5.5 % (0.0-5.0); BG FRACTION INSPIRED OXYGEN 50; BG HCO3 ACT 28.4 mmol/L (22.0-26.0); BG METHEMOGLOBIN 0.3 % (0.0-1.5); BG OXYGEN SATURATION 94.5 % (92.0-98.5); BG OXYHEMOGLOBIN 93.7 % (94.0-97.0); BG PCO2 43.3 mmHg (35.0-45.0); BG PH 7.435 (7.350-7.450); BG SAMPLE SITE RIGHT RADIAL; BG TOTAL HEMOGLOBIN 13.4 g/dL (12.0-18.0); BG TOTAL RESPIRATORY RATE 18 b/min; BG VENT MODE VENT - AC
[2020-10-02 16:33] LABS: BG BASE EXCESS 5.7 mmol/L (-2.0-2.0); BG CARBOXYHEMOGLOBIN 0.1 % (0.5-1.5); BG DEOXYHEMOGLOBIN 4.2 % (0.0-5.0); BG FRACTION INSPIRED OXYGEN 50; BG HCO3 ACT 30.7 mmol/L (22.0-26.0); BG METHEMOGLOBIN 0.1 % (0.0-1.5); BG OXYGEN SATURATION 95.8 % (92.0-98.5); BG OXYHEMOGLOBIN 95.6 % (94.0-97.0); BG PCO2 46.3 mmHg (35.0-45.0); BG PO2 81.5 mmHg (75.0-100.0); BG SAMPLE SITE RIGHT RADIAL; BG VENT MODE VENT - AC
[2020-10-03] VITALS (28 sets, daily range): BP systolic 96–157; BP diastolic 42–86
[2020-10-03] MEDS: FENTANYL CITRATE/PF 2,500 MCG in SODIUM CHLORIDE 0.9% 200 ML IV PRN ×2 (00:30→16:28)
[2020-10-03] MEDS: IPRATROPIUM/ALBUTEROL 0.5-3(2.5)MG/3ML NEB HHN SCH ×3 (03:17→20:48)
[2020-10-03] MEDS: BLOOD SUGAR DIAGNOSTIC STRIP TEST SCH ×4 (07:30→21:09)
[2020-10-03 07:35] LABS: HEMATOCRIT. 35.9 % (36.0-48.0); HEMOGLOBIN. 11.4 g/dL (12.0-16.0); MEAN CORPUSCULAR HEMOGLOBIN 27.6 pg (28.0-32.0); MEAN CORPUSCULAR VOLUME 87.1 fL (81.0-99.0); MEAN PLATELET VOLUME 10.8 fl (7.4-10.4); PLATELET 186 x1000/uL (130-400); RED BLOOD CELL COUNT 4.13 mill/uL (4.2-5.4); RED CELL DISTRIBUTION WIDTH 15.5 % (11.6-14.6)
[2020-10-03 07:56] LABS: CHLORIDE 110 mEq/L (98-107)
[2020-10-03] MEDS: INSULIN LISPRO 100 UNITS/ML SUBCUT SCH ×4 (08:00→21:00)
[2020-10-03] MEDS: FAMOTIDINE 20MG/2ML VIAL IV SCH (09:44)
[2020-10-03] MEDS: ENOXAPARIN 30MG/0.3ML SYR SUBCUT SCH ×2 (09:44→20:56)
[2020-10-03] MEDS: FUROSEMIDE 40MG/4ML VIAL IVP SCH ×2 (09:44→18:07)
[2020-10-03] MEDS: LISINOPRIL 2.5MG TABLET PO SCH (09:44)
[2020-10-03] MEDS: SILDENAFIL CITRATE 20MG TABLET PO SCH ×3 (09:44→21:01)
[2020-10-03] MEDS: METHYLPREDNISOLONE SOD SUCC 40 MG/ML VIAL IV SCH ×3 (09:45→21:00)
[2020-10-03] MEDS ORDERED: POTASSIUM CHLORIDE 20MEQ TABLET SR PO NR (10:00)
[2020-10-03 10:57] LABS: PLATELET ESTIMATE NORMAL
[2020-10-03] MEDS ORDERED: IOHEXOL-350 100 ML BOTTLE ONE (11:41)
[2020-10-03 16:45] LABS: BG BASE EXCESS 6.2 mmol/L (-2.0-2.0); BG CARBOXYHEMOGLOBIN 1.1 % (0.5-1.5); BG FRACTION INSPIRED OXYGEN 50; BG HCO3 ACT 32.3 mmol/L (22.0-26.0); BG METHEMOGLOBIN 0.2 % (0.0-1.5); BG OXYGEN SATURATION 95.9 % (92.0-98.5); BG OXYHEMOGLOBIN 94.7 % (94.0-97.0); BG PH 7.403 (7.350-7.450); BG PO2 82.8 mmHg (75.0-100.0); BG SAMPLE SITE LEFT RADIAL; BG TOTAL HEMOGLOBIN 13.1 g/dL (12.0-18.0); BG TOTAL RESPIRATORY RATE 19 b/min; BG VENT MODE VENT - AC
[2020-10-03] MEDS: ACETAMINOPHEN 325MG TABLET PO PRN (21:12)
[2020-10-04] VITALS (37 sets, daily range): BP systolic 105–150; BP diastolic 51–80
[2020-10-04] MEDS: IPRATROPIUM/ALBUTEROL 0.5-3(2.5)MG/3ML NEB HHN SCH ×4 (01:05→20:38)
[2020-10-04] MEDS: MIDAZOLAM HCL 100 MG in DEXT 5% WATER 100 ML IV PRN ×2 (01:44→06:19)
[2020-10-04] MEDS: METHYLPREDNISOLONE SOD SUCC 40 MG/ML VIAL IV SCH ×2 (06:13→21:09)
[2020-10-04] MEDS: SILDENAFIL CITRATE 20MG TABLET PO SCH ×3 (06:13→21:58)
[2020-10-04] MEDS: FENTANYL CITRATE/PF 2,500 MCG in SODIUM CHLORIDE 0.9% 200 ML IV PRN (06:20)
[2020-10-04] MEDS: FUROSEMIDE 40MG/4ML VIAL IVP SCH ×3 (06:52→22:33)
[2020-10-04 06:54] LABS: CHLORIDE 111 mEq/L (98-107)
[2020-10-04 06:58] LABS: HEMOGLOBIN. 12.7 g/dL (12.0-16.0); MEAN CORPUSCULAR HEMOGLOBIN 27.8 pg (28.0-32.0); MEAN CORPUSCULAR VOLUME 87.7 fL (81.0-99.0); MEAN PLATELET VOLUME 10.8 fl (7.4-10.4); PLATELET 184 x1000/uL (130-400); RED BLOOD CELL COUNT 4.56 mill/uL (4.2-5.4); RED CELL DISTRIBUTION WIDTH 15.8 % (11.6-14.6)
[2020-10-04] MEDS: BLOOD SUGAR DIAGNOSTIC STRIP TEST SCH ×4 (07:54→20:08)
[2020-10-04] MEDS: INSULIN LISPRO 100 UNITS/ML SUBCUT SCH ×4 (08:19→20:08)
[2020-10-04] MEDS: ENOXAPARIN 30MG/0.3ML SYR SUBCUT SCH ×2 (09:05→20:07)
[2020-10-04] MEDS: LISINOPRIL 2.5MG TABLET PO SCH (09:06)
[2020-10-04] MEDS: FAMOTIDINE 20MG/2ML VIAL IV SCH (09:06)
[2020-10-04 10:02] LABS: BG BASE EXCESS 8.8 mmol/L (-2.0-2.0); BG CARBOXYHEMOGLOBIN 0.4 % (0.5-1.5); BG HCO3 ACT 34.1 mmol/L (22.0-26.0); BG METHEMOGLOBIN 0.3 % (0.0-1.5); BG OXYHEMOGLOBIN 95.3 % (94.0-97.0); BG PCO2 49.6 mmHg (35.0-45.0); BG PH 7.455 (7.350-7.450); BG PO2 83.8 mmHg (75.0-100.0); BG SAMPLE SITE RIGHT RADIAL; BG VENT MODE VENT - AC
[2020-10-04] MEDS ORDERED: POTASSIUM CHLORIDE 20MEQ TABLET SR PO NR (10:15)
[2020-10-04 12:12] LABS: PLATELET ESTIMATE NORMAL
[2020-10-04] MEDS ORDERED: AZTREONAM 1 G in DEXTROSE 5% WATER 50 ML IV SCH (13:45)
[2020-10-04 14:07] LABS: BG BASE EXCESS 11.6 mmol/L (-2.0-2.0); BG CARBOXYHEMOGLOBIN 0.6 % (0.5-1.5); BG DEOXYHEMOGLOBIN 2.8 % (0.0-5.0); BG FRACTION INSPIRED OXYGEN 50; BG HCO3 ACT 39.6 mmol/L (22.0-26.0); BG METHEMOGLOBIN 0.3 % (0.0-1.5); BG OXYGEN SATURATION 97.2 % (92.0-98.5); BG OXYHEMOGLOBIN 96.3 % (94.0-97.0); BG PCO2 69.5 mmHg (35.0-45.0); BG PH 7.374 (7.350-7.450); BG PO2 101.3 mmHg (75.0-100.0); BG SAMPLE SITE LEFT RADIAL; BG TOTAL HEMOGLOBIN 12.9 g/dL (12.0-18.0); BG TOTAL RESPIRATORY RATE 24 b/min; BG VENT MODE VENT - CPAP
[2020-10-04] MEDS: METRONIDAZOLE 500 MG PREMIX 100 ML IV SCH ×2 (15:30→21:07)
[2020-10-04] MEDS ORDERED: VANCOMYCIN 2,000 MG in DEXT 5% WATER 500 ML IV SCH (16:00)
[2020-10-04] MEDS: AZTREONAM 2GM in DEXTROSE 5% WATER 100ML IV SCH ×2 (16:46→23:37)
[2020-10-04] MEDS: ACETAMINOPHEN 325MG TABLET PO PRN (20:08)
[2020-10-04] MEDS: POTASSIUM CHLORIDE 20MEQ/PACKET NG SCH (21:09)
[2020-10-05] VITALS (35 sets, daily range): BP systolic 112–146; BP diastolic 55–83
[2020-10-05] MEDS: METRONIDAZOLE 500 MG PREMIX 100 ML IV SCH ×2 (05:31→13:01)
[2020-10-05] MEDS: SILDENAFIL CITRATE 20MG TABLET PO SCH ×3 (05:34→22:01)
[2020-10-05] MEDS: IPRATROPIUM/ALBUTEROL 0.5-3(2.5)MG/3ML NEB HHN SCH ×3 (06:00→20:58)
[2020-10-05] MEDS: VANCOMYCIN 1 G PREMIX 200 ML IV SCH ×2 (06:49→18:20)
[2020-10-05] MEDS: AZTREONAM 2GM in DEXTROSE 5% WATER 100ML IV SCH (07:55)
[2020-10-05] MEDS: BLOOD SUGAR DIAGNOSTIC STRIP TEST SCH ×4 (07:55→21:38)
[2020-10-05] MEDS: INSULIN LISPRO 100 UNITS/ML SUBCUT SCH ×4 (07:55→22:03)
[2020-10-05 08:28] LABS: HEMATOCRIT. 38.4 % (36.0-48.0); HEMOGLOBIN. 12.2 g/dL (12.0-16.0); MEAN CORPUSCULAR VOLUME 88.3 fL (81.0-99.0); MEAN PLATELET VOLUME 11.3 fl (7.4-10.4); PLATELET 186 x1000/uL (130-400); RED BLOOD CELL COUNT 4.34 mill/uL (4.2-5.4); RED CELL DISTRIBUTION WIDTH 15.9 % (11.6-14.6)
[2020-10-05] MEDS ORDERED: FUROSEMIDE 40MG/4ML VIAL IVP SCH (09:00)
[2020-10-05] MEDS: METHYLPREDNISOLONE SOD SUCC 40 MG/ML VIAL IV SCH ×2 (09:08→22:00)
[2020-10-05] MEDS: FAMOTIDINE 20MG/2ML VIAL IV SCH (09:08)
[2020-10-05] MEDS: ENOXAPARIN 30MG/0.3ML SYR SUBCUT SCH ×2 (09:08→22:01)
[2020-10-05] MEDS: POTASSIUM CHLORIDE 20MEQ/PACKET NG SCH ×2 (09:09→22:00)
[2020-10-05] MEDS: LISINOPRIL 2.5MG TABLET PO SCH (09:09)
[2020-10-05 09:31] LABS: CHLORIDE 110 mEq/L (98-107)
[2020-10-05] MEDS: FUROSEMIDE 40MG/4ML VIAL IVP SCH ×2 (09:33→22:01)
[2020-10-05] MEDS: ACETAMINOPHEN 325MG TABLET PO PRN ×2 (09:36→18:20)
[2020-10-05 12:37] LABS: BG BASE EXCESS 11.2 mmol/L (-2.0-2.0); BG DEOXYHEMOGLOBIN 4.9 % (0.0-5.0); BG FRACTION INSPIRED OXYGEN 50; BG HCO3 ACT 37.9 mmol/L (22.0-26.0); BG METHEMOGLOBIN 0.1 % (0.0-1.5); BG PCO2 59.3 mmHg (35.0-45.0); BG PH 7.424 (7.350-7.450); BG PO2 72.1 mmHg (75.0-100.0); BG SAMPLE SITE LEFT RADIAL; BG TOTAL HEMOGLOBIN 13.3 g/dL (12.0-18.0); BG VENT MODE VENT - CPAP
[2020-10-05] MEDS ORDERED: LACTULOSE 20G/30ML UDC PO PRN (17:05)
[2020-10-05 18:41] LABS: PLATELET ESTIMATE NORMAL
[2020-10-05] MEDS ORDERED: LACTULOSE 20G/30ML UDC PO SCH (21:00)
[2020-10-06] VITALS (28 sets, daily range): BP systolic 99–137; BP diastolic 43–88
[2020-10-06 04:19] LABS: CHLORIDE 108 mEq/L (98-107)
[2020-10-06 04:20] LABS: HEMATOCRIT. 39.1 % (36.0-48.0); HEMOGLOBIN. 12.6 g/dL (12.0-16.0); MEAN CORPUSCULAR HEMOGLOBIN 28.2 pg (28.0-32.0); MEAN CORPUSCULAR VOLUME 87.7 fL (81.0-99.0); MEAN PLATELET VOLUME 11.1 fl (7.4-10.4); PLATELET 181 x1000/uL (130-400); RED BLOOD CELL COUNT 4.46 mill/uL (4.2-5.4); RED CELL DISTRIBUTION WIDTH 15.7 % (11.6-14.6)
[2020-10-06] MEDS: ACETAMINOPHEN 325MG TABLET PO PRN (04:21)
[2020-10-06 04:28] LABS: VANCOMYCIN TROUGH 21.8 ug/mL (5.0-10.0)
[2020-10-06] MEDS: IPRATROPIUM/ALBUTEROL 0.5-3(2.5)MG/3ML NEB HHN SCH ×4 (04:38→21:31)
[2020-10-06] MEDS: SILDENAFIL CITRATE 20MG TABLET PO SCH ×3 (06:38→21:20)
[2020-10-06] MEDS: VANCOMYCIN 1 G PREMIX 200 ML IV SCH (06:38)
[2020-10-06] MEDS: BLOOD SUGAR DIAGNOSTIC STRIP TEST SCH ×4 (08:07→21:22)
[2020-10-06] MEDS: LISINOPRIL 2.5MG TABLET PO SCH (08:19)
[2020-10-06] MEDS: ENOXAPARIN 30MG/0.3ML SYR SUBCUT SCH ×2 (08:20→21:04)
[2020-10-06] MEDS: INSULIN LISPRO 100 UNITS/ML SUBCUT SCH ×4 (08:21→21:00)
[2020-10-06] MEDS: FAMOTIDINE 20MG/2ML VIAL IV SCH (08:21)
[2020-10-06] MEDS: FUROSEMIDE 40MG/4ML VIAL IVP SCH ×2 (09:47→21:30)
[2020-10-06] MEDS: METHYLPREDNISOLONE SOD SUCC 40 MG/ML VIAL IV SCH ×2 (09:47→21:04)
[2020-10-06] MEDS: POTASSIUM CHLORIDE 20MEQ/PACKET NG SCH ×2 (09:47→21:04)
[2020-10-06 10:34] LABS: HEMATOCRIT. 40.4 % (36.0-48.0); HEMOGLOBIN. 12.6 g/dL (12.0-16.0); MEAN CORPUSCULAR HEMOGLOBIN 27.5 pg (28.0-32.0); MEAN CORPUSCULAR VOLUME 88.1 fL (81.0-99.0); MEAN PLATELET VOLUME 11.1 fl (7.4-10.4); PLATELET 166 x1000/uL (130-400); RED BLOOD CELL COUNT 4.59 mill/uL (4.2-5.4); RED CELL DISTRIBUTION WIDTH 16.2 % (11.6-14.6)
[2020-10-06 10:42] LABS: BG BASE EXCESS 7.3 mmol/L (-2.0-2.0); BG CARBOXYHEMOGLOBIN 0.5 % (0.5-1.5); BG DEOXYHEMOGLOBIN 5.5 % (0.0-5.0); BG FRACTION INSPIRED OXYGEN 50; BG HCO3 ACT 32.1 mmol/L (22.0-26.0); BG METHEMOGLOBIN 0.1 % (0.0-1.5); BG OXYGEN SATURATION 94.5 % (92.0-98.5); BG OXYHEMOGLOBIN 93.9 % (94.0-97.0); BG PCO2 45.6 mmHg (35.0-45.0); BG PH 7.465 (7.350-7.450); BG PO2 69.9 mmHg (75.0-100.0); BG SAMPLE SITE RIGHT RADIAL; BG TOTAL HEMOGLOBIN 13.5 g/dL (12.0-18.0); BG TOTAL RESPIRATORY RATE 28 b/min; BG VENT MODE VENT - CPAP
[2020-10-06] MEDS: MEROPENEM 1,000 MG in SODIUM CHLORIDE 0.9% 100 ML IV SCH ×2 (11:25→18:58)
[2020-10-06 16:03] LABS: BG DEOXYHEMOGLOBIN 1.4 % (0.0-5.0); BG FRACTION INSPIRED OXYGEN 100; BG HCO3 ACT 38.3 mmol/L (22.0-26.0); BG METHEMOGLOBIN 0.3 % (0.0-1.5); BG OXYGEN SATURATION 98.6 % (92.0-98.5); BG OXYHEMOGLOBIN 98.3 % (94.0-97.0); BG PCO2 56.3 mmHg (35.0-45.0); BG PO2 135.9 mmHg (75.0-100.0); BG SAMPLE SITE RIGHT RADIAL; BG TOTAL HEMOGLOBIN 13.3 g/dL (12.0-18.0); BG VENT MODE MASK - BIPAP
[2020-10-06] MEDS: VANCOMYCIN 750 MG PREMIX 150 ML IV SCH (21:04)
[2020-10-06 22:03] LABS: PLATELET ESTIMATE NORMAL
[2020-10-06 22:30] LABS: PLATELET ESTIMATE NORMAL
[2020-10-07] VITALS (28 sets, daily range): BP systolic 95–132; BP diastolic 35–76
[2020-10-07] MEDS: DIPHENHYDRAMINE 50MG/ML VIAL IV PRN ×2 (00:37→23:32)
[2020-10-07] MEDS: MEROPENEM 1,000 MG in SODIUM CHLORIDE 0.9% 100 ML IV SCH ×3 (03:00→18:58)
[2020-10-07] MEDS: IPRATROPIUM/ALBUTEROL 0.5-3(2.5)MG/3ML NEB HHN SCH ×3 (04:12→15:07)
[2020-10-07] MEDS: SILDENAFIL CITRATE 20MG TABLET PO SCH ×3 (06:03→22:07)
[2020-10-07 07:24] LABS: CHLORIDE 109 mEq/L (98-107)
[2020-10-07] MEDS: BLOOD SUGAR DIAGNOSTIC STRIP TEST SCH ×4 (07:30→21:00)
[2020-10-07] MEDS: INSULIN LISPRO 100 UNITS/ML SUBCUT SCH ×4 (08:00→21:00)
[2020-10-07] MEDS: FAMOTIDINE 20MG/2ML VIAL IV SCH (08:51)
[2020-10-07] MEDS: LISINOPRIL 2.5MG TABLET PO SCH (08:51)
[2020-10-07] MEDS: VANCOMYCIN 750 MG PREMIX 150 ML IV SCH ×2 (08:51→22:07)
[2020-10-07] MEDS: ENOXAPARIN 30MG/0.3ML SYR SUBCUT SCH ×2 (08:52→22:06)
[2020-10-07 10:23] LABS: HEMOGLOBIN. 12.3 g/dL (12.0-16.0); MEAN CORPUSCULAR HEMOGLOBIN 27.3 pg (28.0-32.0); MEAN CORPUSCULAR VOLUME 88.5 fL (81.0-99.0); MEAN PLATELET VOLUME 11.5 fl (7.4-10.4); PLATELET 152 x1000/uL (130-400); RED BLOOD CELL COUNT 4.52 mill/uL (4.2-5.4)
[2020-10-07 11:07] LABS: BG CARBOXYHEMOGLOBIN 0.7 % (0.5-1.5); BG DEOXYHEMOGLOBIN 2.2 % (0.0-5.0); BG FRACTION INSPIRED OXYGEN 50; BG HCO3 ACT 39.2 mmol/L (22.0-26.0); BG METHEMOGLOBIN 0.3 % (0.0-1.5); BG OXYGEN SATURATION 97.8 % (92.0-98.5); BG OXYHEMOGLOBIN 96.8 % (94.0-97.0); BG PH 7.455 (7.350-7.450); BG PO2 102.6 mmHg (75.0-100.0); BG SAMPLE SITE RIGHT RADIAL; BG TOTAL HEMOGLOBIN 12.5 g/dL (12.0-18.0); BG TOTAL RESPIRATORY RATE 23 b/min; BG VENT MODE MASK - BIPAP
[2020-10-07] MEDS: METHYLPREDNISOLONE SOD SUCC 40 MG/ML VIAL IV SCH ×2 (11:18→22:06)
[2020-10-07] MEDS: FUROSEMIDE 40MG/4ML VIAL IVP SCH ×2 (11:18→22:07)
[2020-10-07] MEDS: POTASSIUM CHLORIDE 20MEQ/PACKET NG SCH ×2 (11:18→22:06)
[2020-10-07 12:05] LABS: PLATELET ESTIMATE NORMAL
[2020-10-07] MEDS: ACETAMINOPHEN 325MG TABLET PO PRN (23:31)
[2020-10-08] VITALS (26 sets, daily range): BP systolic 85–137; BP diastolic 37–109
[2020-10-08] MEDS: MEROPENEM 1,000 MG in SODIUM CHLORIDE 0.9% 100 ML IV SCH ×3 (03:00→18:10)
[2020-10-08 05:43] LABS: CHLORIDE 109 mEq/L (98-107)
[2020-10-08] MEDS: IPRATROPIUM/ALBUTEROL 0.5-3(2.5)MG/3ML NEB HHN SCH ×4 (06:00→15:06)
[2020-10-08] MEDS: SILDENAFIL CITRATE 20MG TABLET PO SCH ×3 (06:00→22:10)
[2020-10-08 07:00] LABS: HEMATOCRIT. 46.6 % (36.0-48.0); HEMOGLOBIN. 14.5 g/dL (12.0-16.0); MEAN CORPUSCULAR HEMOGLOBIN 28.1 pg (28.0-32.0); MEAN CORPUSCULAR VOLUME 90.2 fL (81.0-99.0); PLATELET 187 x1000/uL (130-400); RED BLOOD CELL COUNT 5.17 mill/uL (4.2-5.4); RED CELL DISTRIBUTION WIDTH 16.4 % (11.6-14.6)
[2020-10-08] MEDS: BLOOD SUGAR DIAGNOSTIC STRIP TEST SCH ×4 (07:09→21:00)
[2020-10-08] MEDS: INSULIN LISPRO 100 UNITS/ML SUBCUT SCH ×4 (07:10→21:00)
[2020-10-08] MEDS: ENOXAPARIN 30MG/0.3ML SYR SUBCUT SCH ×2 (08:55→22:10)
[2020-10-08] MEDS: FAMOTIDINE 20MG/2ML VIAL IV SCH (08:55)
[2020-10-08] MEDS: LISINOPRIL 2.5MG TABLET PO SCH (08:55)
[2020-10-08] MEDS: VANCOMYCIN 750 MG PREMIX 150 ML IV SCH (08:55)
[2020-10-08] MEDS: METHYLPREDNISOLONE SOD SUCC 40 MG/ML VIAL IV SCH (11:02)
[2020-10-08] MEDS: FUROSEMIDE 40MG/4ML VIAL IVP SCH ×2 (11:03→22:11)
[2020-10-08] MEDS: POTASSIUM CHLORIDE 20MEQ/PACKET NG SCH ×2 (11:03→22:11)
[2020-10-08 15:10] LABS: PLATELET ESTIMATE NORMAL
[2020-10-08 15:33] LABS: HEMOGLOBIN 12.4 g/dL (12.0-16.0); MEAN CORPUSCULAR HEMOGLOBIN 27.8 pg (28.0-32.0); MEAN CORPUSCULAR VOLUME 87.6 fL (81.0-99.0); PLATELET 189 x1000/uL (130-400); RED BLOOD CELL COUNT 4.46 mill/uL (4.2-5.4); RED CELL DISTRIBUTION WIDTH 15.7 % (11.6-14.6)
[2020-10-08] MEDS: DIPHENHYDRAMINE 50MG/ML VIAL IV PRN (22:11)
[2020-10-08] MEDS: ACETAMINOPHEN 325MG TABLET PO PRN (22:11)
[2020-10-09] VITALS (31 sets, daily range): BP systolic 84–168; BP diastolic 36–108
[2020-10-09] MEDS: MEROPENEM 1,000 MG in SODIUM CHLORIDE 0.9% 100 ML IV SCH ×3 (03:20→18:15)
[2020-10-09 05:24] LABS: CHLORIDE 102 mEq/L (98-107)
[2020-10-09] MEDS: SILDENAFIL CITRATE 20MG TABLET PO SCH ×3 (05:37→21:24)
[2020-10-09 06:25] LABS: HEMATOCRIT. 38.1 % (36.0-48.0); HEMOGLOBIN. 12.1 g/dL (12.0-16.0); MEAN CORPUSCULAR HEMOGLOBIN 27.8 pg (28.0-32.0); MEAN CORPUSCULAR VOLUME 87.4 fL (81.0-99.0); MEAN PLATELET VOLUME 11.9 fl (7.4-10.4); PLATELET 188 x1000/uL (130-400); RED BLOOD CELL COUNT 4.36 mill/uL (4.2-5.4); RED CELL DISTRIBUTION WIDTH 15.7 % (11.6-14.6)
[2020-10-09] MEDS: BLOOD SUGAR DIAGNOSTIC STRIP TEST SCH ×4 (07:30→21:24)
[2020-10-09] MEDS: INSULIN LISPRO 100 UNITS/ML SUBCUT SCH ×4 (08:00→21:00)
[2020-10-09] MEDS ORDERED: METHYLPREDNISOLONE SOD SUCC 40 MG/ML VIAL IV SCH (09:00)
[2020-10-09] MEDS: LISINOPRIL 2.5MG TABLET PO SCH (09:00)
[2020-10-09] MEDS: FUROSEMIDE 40MG/4ML VIAL IVP SCH ×2 (09:36→21:35)
[2020-10-09] MEDS: POTASSIUM CHLORIDE 20MEQ/PACKET NG SCH ×2 (09:37→21:24)
[2020-10-09] MEDS: FAMOTIDINE 20MG/2ML VIAL IV SCH (09:37)
[2020-10-09] MEDS: ENOXAPARIN 30MG/0.3ML SYR SUBCUT SCH ×2 (09:37→21:23)
[2020-10-09] MEDS: ACETAMINOPHEN 325MG TABLET PO PRN (10:36)
[2020-10-09] MEDS: IPRATROPIUM/ALBUTEROL 0.5-3(2.5)MG/3ML NEB HHN SCH ×2 (11:00→21:44)
[2020-10-09] MEDS: METRONIDAZOLE 500MG TABLET PO SCH (18:01)
[2020-10-09 22:58] LABS: PLATELET ESTIMATE NORMAL
[2020-10-10] VITALS (9 sets, daily range): BP systolic 93–125; BP diastolic 48–66
[2020-10-10] MEDS: METRONIDAZOLE 500MG TABLET PO SCH ×3 (02:51→17:04)
[2020-10-10] MEDS: MEROPENEM 1,000 MG in SODIUM CHLORIDE 0.9% 100 ML IV SCH ×3 (02:52→19:46)
[2020-10-10] MEDS: IPRATROPIUM/ALBUTEROL 0.5-3(2.5)MG/3ML NEB HHN SCH ×4 (04:25→21:29)
[2020-10-10] MEDS: SILDENAFIL CITRATE 20MG TABLET PO SCH ×3 (06:00→22:07)
[2020-10-10] MEDS: BLOOD SUGAR DIAGNOSTIC STRIP TEST SCH ×4 (06:19→21:56)
[2020-10-10 07:15] LABS: EOSINOPHILS % 0.1 % (0.0-5.0); HEMATOCRIT. 36.1 % (36.0-48.0); HEMOGLOBIN. 11.7 g/dL (12.0-16.0); LYMPHOCYTES % 5.1 % (20.0-50.0); MEAN CORPUSCULAR VOLUME 86.6 fL (81.0-99.0); MEAN PLATELET VOLUME 11.8 fl (7.4-10.4); MONOCYTES % 8.1 % (2.0-8.0); NEUTROPHILS % 86.7 % (40.0-76.0); PLATELET 145 x1000/uL (130-400); RED BLOOD CELL COUNT 4.16 mill/uL (4.2-5.4); RED CELL DISTRIBUTION WIDTH 15.2 % (11.6-14.6)
[2020-10-10 07:20] LABS: CHLORIDE 100 mEq/L (98-107)
[2020-10-10] MEDS: INSULIN LISPRO 100 UNITS/ML SUBCUT SCH ×4 (07:20→21:00)
[2020-10-10] MEDS: LISINOPRIL 2.5MG TABLET PO SCH (09:00)
[2020-10-10] MEDS: POTASSIUM CHLORIDE 20MEQ/PACKET NG SCH ×2 (09:53→22:06)
[2020-10-10] MEDS: FUROSEMIDE 40MG/4ML VIAL IVP SCH ×2 (09:53→22:07)
[2020-10-10] MEDS: FAMOTIDINE 20MG/2ML VIAL IV SCH (09:53)
[2020-10-10] MEDS: ENOXAPARIN 30MG/0.3ML SYR SUBCUT SCH ×2 (09:54→22:06)
[2020-10-10] MEDS ORDERED: POTASSIUM CHLORIDE 20MEQ TABLET SR PO NR (11:15)
[2020-10-10] MEDS: METOPROLOL TARTRATE 25MG TABLET PO SCH (17:00)
[2020-10-11] VITALS (7 sets, daily range): BP systolic 90–166; BP diastolic 39–75
[2020-10-11] MEDS: METRONIDAZOLE 500MG TABLET PO SCH ×3 (01:48→19:08)
[2020-10-11] MEDS: MEROPENEM 1,000 MG in SODIUM CHLORIDE 0.9% 100 ML IV SCH (03:07)
[2020-10-11] MEDS: SILDENAFIL CITRATE 20MG TABLET PO SCH ×3 (05:19→21:44)
[2020-10-11] MEDS: ACETAMINOPHEN 325MG TABLET PO PRN ×2 (05:20→09:56)
[2020-10-11] MEDS: BLOOD SUGAR DIAGNOSTIC STRIP TEST SCH ×4 (07:03→21:29)
[2020-10-11] MEDS: INSULIN LISPRO 100 UNITS/ML SUBCUT SCH ×4 (07:20→21:00)
[2020-10-11] MEDS: IPRATROPIUM/ALBUTEROL 0.5-3(2.5)MG/3ML NEB HHN SCH ×3 (07:56→22:15)
[2020-10-11] MEDS: METOPROLOL TARTRATE 25MG TABLET PO SCH (09:00)
[2020-10-11] MEDS: MULTIVITAMINS,THER W-MINERALS TABLET PO SCH (09:14)
[2020-10-11] MEDS: ENOXAPARIN 30MG/0.3ML SYR SUBCUT SCH ×2 (09:14→21:41)
[2020-10-11] MEDS: FAMOTIDINE 20MG TABLET PO SCH (09:14)
[2020-10-11] MEDS: POTASSIUM CHLORIDE 20MEQ/PACKET NG SCH ×2 (09:56→21:42)
[2020-10-11] MEDS: FUROSEMIDE 40MG/4ML VIAL IVP SCH ×2 (09:57→21:45)
[2020-10-11 12:46] LABS: HEMOGLOBIN. 11.4 g/dL (12.0-16.0); MEAN CORPUSCULAR HEMOGLOBIN 27.3 pg (28.0-32.0); MEAN CORPUSCULAR VOLUME 86.3 fL (81.0-99.0); MEAN PLATELET VOLUME 11.8 fl (7.4-10.4); PLATELET 136 x1000/uL (130-400); RED BLOOD CELL COUNT 4.17 mill/uL (4.2-5.4); RED CELL DISTRIBUTION WIDTH 15.3 % (11.6-14.6)
[2020-10-11 13:38] LABS: CHLORIDE 105 mEq/L (98-107)
[2020-10-11 15:29] LABS: PLATELET ESTIMATE NORMAL
[2020-10-12] VITALS (7 sets, daily range): BP systolic 103–120; BP diastolic 45–63
[2020-10-12] MEDS: METRONIDAZOLE 500MG TABLET PO SCH ×3 (02:39→17:52)
[2020-10-12] MEDS: SILDENAFIL CITRATE 20MG TABLET PO SCH ×3 (05:51→22:27)
[2020-10-12 06:17] LABS: HEMATOCRIT 34.1 % (36.0-48.0); HEMOGLOBIN 11.2 g/dL (12.0-16.0); MEAN CORPUSCULAR HEMOGLOBIN 28.5 pg (28.0-32.0); MEAN CORPUSCULAR VOLUME 86.8 fL (81.0-99.0); PLATELET 134 x1000/uL (130-400); RED BLOOD CELL COUNT 3.93 mill/uL (4.2-5.4); RED CELL DISTRIBUTION WIDTH 14.9 % (11.6-14.6)
[2020-10-12] MEDS: BLOOD SUGAR DIAGNOSTIC STRIP TEST SCH ×4 (06:29→21:00)
[2020-10-12 06:52] LABS: CHLORIDE 97 mEq/L (98-107)
[2020-10-12] MEDS: INSULIN LISPRO 100 UNITS/ML SUBCUT SCH ×4 (07:20→21:00)
[2020-10-12] MEDS: METOPROLOL TARTRATE 25MG TABLET PO SCH (09:00)
[2020-10-12] MEDS: MULTIVITAMINS,THER W-MINERALS TABLET PO SCH (09:53)
[2020-10-12] MEDS: POTASSIUM CHLORIDE 20MEQ/PACKET NG SCH ×2 (09:53→22:27)
[2020-10-12] MEDS: FAMOTIDINE 20MG TABLET PO SCH (09:53)
[2020-10-12] MEDS: FUROSEMIDE 40MG/4ML VIAL IVP SCH ×2 (09:54→22:31)
[2020-10-12] MEDS: ENOXAPARIN 30MG/0.3ML SYR SUBCUT SCH ×2 (09:54→22:27)
[2020-10-12] MEDS: ACETAMINOPHEN 325MG TABLET PO PRN ×2 (14:17→22:32)
[2020-10-12] MEDS: GUAIFENESIN-DM 200MG-20MG/10ML UDC PO PRN ×2 (15:17→22:28)
[2020-10-12] MEDS: IPRATROPIUM/ALBUTEROL 0.5-3(2.5)MG/3ML NEB HHN SCH ×2 (16:25→20:35)
[2020-10-13] VITALS (9 sets, daily range): BP systolic 90–118; BP diastolic 49–61
[2020-10-13] MEDS: IPRATROPIUM/ALBUTEROL 0.5-3(2.5)MG/3ML NEB HHN SCH ×4 (02:09→22:23)
[2020-10-13] MEDS: DIPHENHYDRAMINE 50MG/ML VIAL IV PRN (02:32)
[2020-10-13] MEDS: METRONIDAZOLE 500MG TABLET PO SCH ×3 (02:32→17:53)
[2020-10-13] MEDS: INSULIN LISPRO 100 UNITS/ML SUBCUT SCH ×4 (06:23→21:00)
[2020-10-13] MEDS: BLOOD SUGAR DIAGNOSTIC STRIP TEST SCH ×4 (06:23→21:00)
[2020-10-13] MEDS: SILDENAFIL CITRATE 20MG TABLET PO SCH ×3 (06:25→21:45)
[2020-10-13] MEDS: MULTIVITAMINS,THER W-MINERALS TABLET PO SCH (09:55)
[2020-10-13] MEDS: METOPROLOL TARTRATE 25MG TABLET PO SCH (09:55)
[2020-10-13] MEDS: POTASSIUM CHLORIDE 20MEQ/PACKET NG SCH ×2 (09:55→21:33)
[2020-10-13] MEDS: FAMOTIDINE 20MG TABLET PO SCH (09:55)
[2020-10-13] MEDS: FUROSEMIDE 40MG/4ML VIAL IVP SCH ×2 (09:55→21:46)
[2020-10-13] MEDS: ENOXAPARIN 30MG/0.3ML SYR SUBCUT SCH ×2 (09:56→21:35)
[2020-10-13] MEDS: GUAIFENESIN-DM 200MG-20MG/10ML UDC PO PRN (21:36)
[2020-10-13] MEDS: ACETAMINOPHEN 325MG TABLET PO PRN (21:44)
[2020-10-14] VITALS: BP 95/55
[2020-10-14] MEDS: DIPHENHYDRAMINE 50MG/ML VIAL IV PRN (01:43)
[2020-10-14] MEDS: METRONIDAZOLE 500MG TABLET PO SCH ×3 (01:43→17:47)
[2020-10-14 04:00] VITALS: BP 107/76
[2020-10-14] MEDS: SILDENAFIL CITRATE 20MG TABLET PO SCH ×3 (06:32→21:30)
[2020-10-14] MEDS: INSULIN LISPRO 100 UNITS/ML SUBCUT SCH ×4 (06:32→21:00)
[2020-10-14] MEDS: BLOOD SUGAR DIAGNOSTIC STRIP TEST SCH ×4 (06:32→21:00)
[2020-10-14 08:00] VITALS: BP 104/54
[2020-10-14] MEDS: ENOXAPARIN 30MG/0.3ML SYR SUBCUT SCH ×2 (08:11→21:30)
[2020-10-14] MEDS: MULTIVITAMINS,THER W-MINERALS TABLET PO SCH (08:11)
[2020-10-14] MEDS: METOPROLOL TARTRATE 25MG TABLET PO SCH (08:11)
[2020-10-14] MEDS: FAMOTIDINE 20MG TABLET PO SCH (08:11)
[2020-10-14] MEDS: ACETAMINOPHEN 325MG TABLET PO PRN ×2 (08:14→21:33)
[2020-10-14 12:00] VITALS: BP 107/52
[2020-10-14] MEDS: POTASSIUM CHLORIDE 20MEQ/PACKET NG SCH ×2 (12:22→21:30)
[2020-10-14] MEDS: FUROSEMIDE 40MG/4ML VIAL IVP SCH ×2 (12:23→22:02)
[2020-10-14 16:00] VITALS: BP 112/58
[2020-10-14 17:48] LABS: CHLORIDE 97 mEq/L (98-107)
[2020-10-14 20:00] VITALS: BP 113/71
[2020-10-14] MEDS: GUAIFENESIN-DM 200MG-20MG/10ML UDC PO PRN (21:30)
[2020-10-14] MEDS: LIDOCAINE 5% PATCH TOP SCH (22:02)
[2020-10-14] MEDS: IPRATROPIUM/ALBUTEROL 0.5-3(2.5)MG/3ML NEB HHN SCH (23:00)
[2020-10-15] VITALS: BP 101/54
[2020-10-15 04:00] VITALS: BP 110/54
[2020-10-15] MEDS: BLOOD SUGAR DIAGNOSTIC STRIP TEST SCH ×4 (06:07→20:11)
[2020-10-15] MEDS: INSULIN LISPRO 100 UNITS/ML SUBCUT SCH ×4 (06:07→20:11)
[2020-10-15] MEDS: SILDENAFIL CITRATE 20MG TABLET PO SCH ×2 (06:38→14:00)
[2020-10-15 08:00] VITALS: BP 120/61
[2020-10-15] MEDS: METOPROLOL TARTRATE 25MG TABLET PO SCH (09:00)
[2020-10-15] MEDS: ENOXAPARIN 30MG/0.3ML SYR SUBCUT SCH (09:17)
[2020-10-15] MEDS: FAMOTIDINE 20MG TABLET PO SCH (09:17)
[2020-10-15] MEDS: POTASSIUM CHLORIDE 20MEQ/PACKET NG SCH (09:17)
[2020-10-15] MEDS: MULTIVITAMINS,THER W-MINERALS TABLET PO SCH (09:17)
[2020-10-15] MEDS: LIDOCAINE 5% PATCH TOP SCH (09:20)
[2020-10-15] MEDS: IPRATROPIUM/ALBUTEROL 0.5-3(2.5)MG/3ML NEB HHN SCH ×2 (09:20→14:09)
[2020-10-15 10:14] LABS: BASOPHILS % 0.5 % (0.0-2.0); EOSINOPHILS % 0.8 % (0.0-5.0); HEMATOCRIT. 35.7 % (36.0-48.0); HEMOGLOBIN. 11.8 g/dL (12.0-16.0); MEAN CORPUSCULAR HEMOGLOBIN 28.6 pg (28.0-32.0); MEAN CORPUSCULAR VOLUME 86.3 fL (81.0-99.0); MEAN PLATELET VOLUME 9.8 fl (7.4-10.4); NEUTROPHILS % 84.7 % (40.0-76.0); PLATELET 173 x1000/uL (130-400); RED BLOOD CELL COUNT 4.13 mill/uL (4.2-5.4); RED CELL DISTRIBUTION WIDTH 15.3 % (11.6-14.6)
[2020-10-15 10:27] LABS: CHLORIDE 96 mEq/L (98-107)
[2020-10-15 12:00] VITALS: BP 107/54
[2020-10-15] MEDS: FUROSEMIDE 40MG/4ML VIAL IVP SCH (12:45)
[2020-10-15 16:00] VITALS: BP 104/48
[2020-10-15 17:36] VITALS: BP 101/61
== END 2020-10-15 21:02 | DRG 870 ==
LOC: ER 21:36 → MICUSO 09-26 00:26 → EDBEDREQSVC 09-26 01:05 → EDBEDREQ 09-26 01:05 → 5EST 10-02 10:49 → 3WST 10-09 23:45
PROVIDERS: ADMIT Internal Medicine; ATTEND Internal Medicine
PROC: 5A1955Z Respiratory Ventilation, Greater than 96 Consecutive Hours (ICD-10-PCS; principal; 2020-09-26)
PROC: 0BH18EZ Insertion of Endotracheal Airway into Trachea, Via Natural or Artificial Opening Endoscopic (ICD-10-PCS; 2020-09-26)
PROC: 05HM33Z Insertion of Infusion Device into Right Internal Jugular Vein, Percutaneous Approach (ICD-10-PCS; 2020-09-26)
PROC: B543ZZA Ultrasonography of Right Jugular Veins, Guidance (ICD-10-PCS; 2020-09-26)
PROC: 5A09357 Assistance with Respiratory Ventilation, Less than 24 Consecutive Hours, Continuous Positive Airway Pressure (ICD-10-PCS; 2020-10-04)
PROC: 05H533Z Insertion of Infusion Device into Right Subclavian Vein, Percutaneous Approach (ICD-10-PCS; 2020-10-10)
PROC: B546ZZA Ultrasonography of Right Subclavian Vein, Guidance (ICD-10-PCS; 2020-10-10)
DX: A41.9 Sepsis, unspecified organism (principal); J96.01 Acute respiratory failure with hypoxia; J18.9 Pneumonia, unspecified organism; J96.02 Acute respiratory failure with hypercapnia; E66.2 Morbid (severe) obesity with alveolar hypoventilation; E87.2 Acidosis; I50.32 Chronic diastolic (congestive) heart failure; J44.1 Chronic obstructive pulmonary disease with (acute) exacerbation; N39.0 Urinary tract infection, site not specified; Z68.41 Body mass index [BMI] 40.0-44.9, adult; J44.0 Chronic obstructive pulmonary disease with (acute) lower respiratory infection; Z68.42 Body mass index [BMI] 45.0-49.9, adult; E03.9 Hypothyroidism, unspecified; E78.00 Pure hypercholesterolemia, unspecified; E78.5 Hyperlipidemia, unspecified; I11.0 Hypertensive heart disease with heart failure; I48.0 Paroxysmal atrial fibrillation; I27.21 Secondary pulmonary arterial hypertension; E87.6 Hypokalemia; E04.2 Nontoxic multinodular goiter; K57.90 Diverticulosis of intestine, part unspecified, without perforation or abscess without bleeding; R00.1 Bradycardia, unspecified; D72.829 Elevated white blood cell count, unspecified; R65.20 Severe sepsis without septic shock; Z20.822 Contact with and (suspected) exposure to COVID-19; Z78.1 Physical restraint status; Z79.51 Long term (current) use of inhaled steroids; Z88.0 Allergy status to penicillin; Z88.1 Allergy status to other antibiotic agents; Z79.899 Other long term (current) drug therapy; Z88.6 Allergy status to analgesic agent; Z87.01 Personal history of pneumonia (recurrent); Z79.2 Long term (current) use of antibiotics
CPT/HCPCS: 31500; 36415; 36600; 71045; 71275; 74176; 76604; 76937; 80048; 80053; 80061; 80202; 80320; 82375; 82805; 82962; 83605; 83735; 83880; 84132; 84145; 84443; 84484; 85025; 85027; 86850; 86900; 87070; 87077; 87186; 87426; 89055; 92610; 93005; 93306; 93970; 94002; 94003; 94640; 96365; 96368; 97110; 97162; 97530; 99291; A6261; C1725; C9803; J0360; J1100; J1200; J1265; J1650; J1815; J1940; J2185; J2250; J2704; J2920; J3010; J3370; J3490; J7042; J7050; J7060; Q9967; U0003; G0480